=== PATIENT | male | born 1935 | race Caucasian/White ===

== ENCOUNTER 2023-12-21 15:00 | Outpatient (RCR) | payer MEDICARE, OTHER, SELFPAY ==
--- NOTE | 2023-11-27 16:02 | PT.OPEX ---
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 HE STATES, IT'S WORST WHEN I'M TRYING TO TAKE MY TSHIRT OFF. HE BRINGS IN AN XRAY REPORT THAT INDICATES GHJ ARTHRITIC CHANGES WITH SPURRING. HE IS HERE TO AVOID SURGERY, REDUCE HIS PAIN, AND IMPROVE FUNCTION . 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 Preferred Name SYD Precautions Therapy Limitations/Systems Review Hearing Objective Other/Pertinent Objective CERVICAL ROM: WFL SHOULDER AROM Flexion: R 152 W/PAINFUL ARC Abduction: R 142 Internal Rotation: R T10 External Rotation: R 72 SHOULDER MMT: Shoulder shrug: R 5/5 L 5/5 Shoulder flexion: R 3/5 L 5/5 Shoulder abduction: R 3/5 L 5/ 5 Shoulder External Rotation: R 3/5 L 5/5 Shoulder Internal Rotation: R 4+/5 L 5/5 SPECIAL TEST Shoulder impingement (+) HawkinsKennedy Test: (+) Neer Test: (+) Marina Test(subacromial) : (+) Painful arc 60-120 scaption: ( +) Rotator cuff tendonitis Speeds test(biceps): (+) Suzannas test(biceps-arm at side elbow flexed resist supination): (+) *Empty can/Jobes (Supra): (+) *full can: (+) Lift off test (subscap): (-) *horn blower (90-90 resistance t. 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 HANCOCK FOR RIGHT SHOULDER ARTHROPATHY TO EVAL AND TX; PMHX INCLUDES BUT NOT LIMITED TO HTN, GERD, H/O RIGHT MICAELA (2020?); HE DEMONSTRATES SIGNS AND SYMPTOMS CONSISTENT WITH SUPRASPINATUS AND INFRASPINATUS COMPROMISE WELL PROXIMAL BICEPS INVOLVEMENT. HIS GREATEST PAIN IS WITH CLOSING DOWN THE JOINT SPACE AND COMBINATION MVMTS CROSSING THE CHEST. HE REPORTS HIS GREATEST DEFICITS ARE REACHING AWAY FROM BODY, TAKING HIS TSHIRT OFF, AND CARRYING ITEMS. THIS IS HIS DOMINANT HAND AND FINDS THAT HIS LEFT SHOULDER IS DOING MUCH MORE WORK OVERALL. HE WOULD BENEFIT FROM SKILLED PHYSICAL THERAPY TO IMPROVE HIS SCAPULAR STRENGTH AND STABILIZATION, IMPROVE PAINFREE ROM, AND STRENGTH HIS RTC IT WILL ALLOW. HE IS PROVIDED A HEP TO BEGIN THIS ENDEAVOR AND UNDERSTANDS THAT IT IS YET TO BE DETERMINED HOW MUCH FUNCTION HE WILL GAIN BACK WELL SYMPTOM MGMT. Primary Functional Limitations REACHING LIFTING CARRYING ADL'S Plan of Care Rehabilitation Potential Fair Physical Therapy Goals SHOULDER IN 6-12 VISITS: 1. DECREASE SHOULDER PAIN TO < /2-3/10 WITH DAILY ACTIVITIES AND WITH THE PROGRESSION OF HER HEP OVER THE NEXT 4 WEEKS. 2. DEMONSTRATE PAIN FREE AROM OVER THE NEXT 4-6 WEEKS DURING DAILY ACTIVITIES WITHOUT FLARE UPS OF SYMPTOMS. 3. PATIENT WILL VERBALIZED UNDERSTANDING OF POSTURING AND BODY MECHANICS IT RELATES TO DECREASING STRESS, IMPROVED SHOULDER MECHANICS, AND DECREASED SYMPTOMS. 4.PATIENT WILL DEMONSTRATES IMPROVED STRENGTH TO FACILITATE RETURN TO DAILY ACTIVITIES WITH LESS SYMPTOMS AND DECREASED OPPORTUNITIES FOR FLARE UP OF PAIN 5. PATIENT WILL BE INDEPENDENT WITH HER HEP WITHIN THE NEXT 6-8 WEEKS FOR PROGRESSION TWD ABOVE MENTION GOALS, CONTINUED MGMT OF SYMPTOMS, AND ONGOING SELF IMPROVEMENTS IN POSTURING/STRENGTH/ STABILIZATION. Coordination/Communication With Referral Source Treatment Plan/Direct Interventions Electrical Stimulation,Heat, Ice/Cold/Vasopneumatic,Joint Mobilization,Manual Therapy, Neuromuscular Re-ed,Self-Care/ Home Management,Therapeutic Activities,Therapeutic Exercises,Ultrasound Frequency/Duration 1X/WK Patient Will Be Discharged From Therapy Completion of LTG(s), Independent w/HEP Evaluation Billing Untimed Code Treatment Minutes 20 PT Eval No Charge No Complexity Moderate Certification Information Initial Certification Date 11/27/23 Ending Certification Date 02/24/24 Provider Signature Required Yes Provider Signature Shows Agreement With POC & Medical Necessity Physician NPI Number Write NPI# Here Physician Comment/Change : Physician Signature & Date Requested Please Sign/Date Here
== END 2024-02-02 16:28 | disposition home or self-care (01) ==
PROVIDERS: PCP Family Medicine; Visit Provider Family Medicine
DX: M12.811 Other specific arthropathies, not elsewhere classified, right shoulder (principal); M25.511 Pain in right shoulder; M25.311 Other instability, right shoulder; Z51.89 Encounter for other specified aftercare
CPT/HCPCS: 97035; 97110; 97162

== ENCOUNTER 2024-01-25 13:22 | Inpatient (IN) | payer MEDICARE, OTHER, SELFPAY ==
[2024-01-25] VITALS (26 sets, daily range): BP systolic 100–157; BP diastolic 72–112; PULSE 64–104; RESP 20; TEMP 36.2–36.8; O2SAT 94–99; BMI 24.0
--- NOTE | 2024-01-25 13:54 | ED_ITS ---
HPI - Arrhythmia/Palpitations General Chief Complaint: Arrhythmia/Palpitations <Reg Hernandez Surjit - Last Filed: 01/25/24 15:57> Stated Complaint: Short of Breath <Reg Hernandez Surjit - Last Filed: 01/25/24 15:57> Time Seen by Provider: 01/25/24 13:33 <Reg Eddy - Last Filed: 01/25/24 15:57> Source: patient <Reg Eddy DO - Last Filed: 01/25/24 15:57> Mode of arrival: ambulatory <Reg Eddy - Last Filed: 01/25/24 15:57> Limitations: no limitations <Reg Hernandez Surjit - Last Filed: 01/25/24 15:57> History of Present Illness HPI narrative: Patient is a 88-year-old male presenting to the emergency department for shortness of breath. His states she has noticed some shortness of breath with him for the past month in he states it has been noticeably worse worse for the past week. He has never had symptoms like this before. No history of heart disease that he is aware of. Has never been told he has an irregular heart rhythm before. States symptoms resolved when he sits down. Only notice them when he is up and moving around. States now feels like he ran a mi after walking just a short distance. Denies fevers, chills, chest pain, weakness, numbness, headache, diarrhea, constipation. Has been having increased swelling to his right lower extremity for a little over a month now. States he is asymptomatic at this time. Has not felt any palpitations. <Reg Eddy - Last Filed: 01/25/24 15:57> Related Data Home Medications: Home Medications ?Medication ?Instructions ?Recorded ?Confirmed levothyroxine 25 mcg tablet mcg 01/25/24 lisinopril 20 tab 01/25/24 mg-hydrochlorothiazide 25 mg tablet omeprazole 20 mg capsule,delayed mg 01/25/24 release rosuvastatin 20 mg tablet mg 01/25/24 <Reg Eddy - Last Filed: 01/25/24 15:57> Allergies/Adverse Reactions: Allergies Allergy/AdvReac Type Severity Reaction Status Date / Time No Known Drug Allergies Allergy Verified 01/25/24 13:32 <Reg Eddy DO - Last Filed: 01/25/24 15:57> Review of Systems Status of ROS: Reports: 10 or more systems reviewed and unremarkable except as noted in History and below <Reg Eddy DO - Last Filed: 01/25/24 15:57> Exam Narrative: Exam Narrative: Const: Well-nourished, Well-developed, in no distress Eyes: PERRL, no conjunctival injection, and symmetrical lids HENT: Atraumatic external nose and ears. Moist mucous membranes. Neck: Symmetric, trachea midline, No thyromegaly. CVS: Regular rate but irregular rhythm, No murmurs or gallops. Peripheral pulses 2+ and equal in all extremities Extremities: +1 pitting edema right lower extremity RESP: Unlabored respiratory effort. Clear to auscultation bilaterally. GI: Nontender/Nondistended, No rebound or guarding. MSK:Extremities w/o deformity, Normal Active ROM, Skin: Warm, Dry. No rashes or lesions. Neuro: Normal Muscle tone, No focal neurological deficits. Psych: Awake, Alert, & Oriented x3. Appropriate mood and affect. <Reg Eddy DO - Last Filed: 01/25/24 15:57> Const: Vital Signs, click to edit/add: Vital Signs - 24 hr 01/25/24 13:29 01/25/24 13:45 01/25/24 13:46 Temperature 97.6 F Pulse Rate 86 85 Pulse Rate [Pulse Oximeter] 101 H Respiratory Rate 20 Blood Pressure 109/73 Blood Pressure [Ri ght Upper Arm] 114/79 Pulse Oximetry 95 99 98 Oxygen Delivery Me thod Room Air 01/25/24 14:00 01/25/24 14:01 01/25/24 14:31 Temperature Pulse Rate 89 91 Pulse Rate [Pulse Oximeter] Respiratory Rate Blood Pressure 111/84 111/72 Blood Pressure [Ri ght Upper Arm] Pulse Oximetry 97 99 Oxygen Delivery Me thod 01/25/24 14:33 01/25/24 14:47 01/25/24 15:01 Temperature Pulse Rate 95 85 92 Pulse Rate [Pulse Oximeter] Respiratory Rate Blood Pressure 115/98 H Blood Pressure [Ri ght Upper Arm] Pulse Oximetry 99 98 99 Oxygen Delivery Me thod <Reg Eddy DO - Last Filed: 01/25/24 15:57> Vital Signs, click to edit/add: Vital Signs - 24 hr 01/25/24 13:29 01/25/24 13:45 01/25/24 13:46 Temperature 97.6 F Pulse Rate 86 85 Pulse Rate [Pulse Oximeter] 101 H Respiratory Rate 20 Blood Pressure 109/73 Blood Pressure [Ri ght Upper Arm] 114/79 Pulse Oximetry 95 99 98 Oxygen Delivery Me thod Room Air 01/25/24 14:00 01/25/24 14:01 01/25/24 14:31 Temperature Pulse Rate 89 91 Pulse Rate [Pulse Oximeter] Respiratory Rate Blood Pressure 111/84 111/72 Blood Pressure [Ri ght Upper Arm] Pulse Oximetry 97 99 Oxygen Delivery Me thod 01/25/24 14:33 01/25/24 14:47 01/25/24 15:01 Temperature Pulse Rate 95 85 92 Pulse Rate [Pulse Oximeter] Respiratory Rate Blood Pressure 115/98 H Blood Pressure [Ri ght Upper Arm] Pulse Oximetry 99 98 99 Oxygen Delivery Me thod <Tamia De Leon MD - Last Filed: 01/25/24 16:58> Course Course ED Course: Presents to follow-up on the chest CTA of this patient. Chest CT PE protocol did not show any evidence of PE. <Tamia De Leon MD - Last Filed: 01/25/24 16:58> Vital Signs Vital signs: Initial Vital Signs Temperature 97.6 F 01/25/24 13:29 Temperature Source Temporal Artery Scan 01/25/24 13:29 Pulse Rate 101 H 01/25/24 13:29 Respiratory Rate 20 01/25/24 13:29 Blood Pressure 114/79 01/25/24 13:29 Blood Pressure Mean 90 01/25/24 13:29 Blood Pressure Position Sitting 01/25/24 13:29 Pulse Oximetry 95 01/25/24 13:29 Oxygen Delivery Method Room Air 01/25/24 13:29 Vital Signs Temperature 97.6 F 01/25/24 13:29 Pulse Rate 101 H 01/25/24 13:29 Respiratory Rate 20 01/25/24 13:29 Blood Pressure 114/79 01/25/24 13:29 Pulse Oximetry 95 01/25/24 13:29 Oxygen Delivery Method Room Air 01/25/24 13:29 Temperature 97.6 F 01/25/24 13:29 Pulse Rate 92 01/25/24 15:01 Respiratory Rate 20 01/25/24 13:29 Blood Pressure 115/98 H 01/25/24 15:01 Pulse Oximetry 99 01/25/24 15:01 Oxygen Delivery Method Room Air 01/25/24 13:29 <Reg Eddy DO - Last Filed: 01/25/24 15:57> Initial Vital Signs Temperature 97.6 F 01/25/24 13:29 Temperature Source Temporal Artery Scan 01/25/24 13:29 Pulse Rate 101 H 01/25/24 13:29 Respiratory Rate 20 01/25/24 13:29 Blood Pressure 114/79 01/25/24 13:29 Blood Pressure Mean 90 01/25/24 13:29 Blood Pressure Position Sitting 01/25/24 13:29 Pulse Oximetry 95 01/25/24 13:29 Oxygen Delivery Method Room Air 01/25/24 13:29 Vital Signs Temperature 97.6 F 01/25/24 13:29 Pulse Rate 101 H 01/25/24 13:29 Respiratory Rate 20 01/25/24 13:29 Blood Pressure 114/79 01/25/24 13:29 Pulse Oximetry 95 01/25/24 13:29 Oxygen Delivery Method Room Air 01/25/24 13:29 Temperature 97.6 F 01/25/24 13:29 Pulse Rate 92 01/25/24 15:01 Respiratory Rate 20 01/25/24 13:29 Blood Pressure 115/98 H 01/25/24 15:01 Pulse Oximetry 99 01/25/24 15:01 Oxygen Delivery Method Room Air 01/25/24 13:29 <Tamia De Leon MD - Last Filed: 01/25/24 16:58> Medications Administered Medications: Discontinued Medications Generic Name Dose Route Start Last Admin Trade Name Freq PRN Reason Stop Dose Admin Lactated Ringer's 1,000 mls @ 1,000 mls/hr 01/25/24 14:29 01/25/24 16:18 Lactated Ringers 1000 Ml IV 01/25/24 15:28 Infused .Q1H ONE Infusion <Reg Eddy DO - Last Filed: 01/25/24 15:57> Discontinued Medications Generic Name Dose Route Start Last Admin Trade Name Freq PRN Reason Stop Dose Admin Lactated Ringer's 1,000 mls @ 1,000 mls/hr 01/25/24 14:29 01/25/24 16:18 Lactated Ringers 1000 Ml IV 01/25/24 15:28 Infused .Q1H ONE Infusion <Tamia De Leon MD - Last Filed: 01/25/24 16:58> MDM - Arrhythmia/Palpitations MDM Narrative Medical decision making narrative: Patient is an 88-year-old male presenting to the emergency department for shortness of breath. He does appear to be in AFib at this time. He is not on blood thinners and sounds like symptoms have been going on for more than a couple days so cardioversion cannot be performed at this time. With the shortness of breath I will do a D-dimer look for signs PE. Was doing EKG and troponins look for signs of coronary artery disease. COVID/flu/RSV, magnesium, BMP, CBC also ordered. His heart rate is mostly in the 90s at this time and I do not believe is necessary to do a Cardizem bolus currently CBC shows no concerning abnormalities. BMP shows potassium 3.1 but no other concerning findings. His troponin was elevated at 0.25 repeat troponin was ordered. Magnesium within normal limits. COVID/flu/RSV is negative. His D- dimer is elevated 1.76 and I will order a CTA of the chest. This is pending. I spoke to [facility] both patient's symptoms and results. He thinks his elevated troponin is most likely from the new onset AFib an does not believe the patient needs to be transferred. Does recommend starting him on Eliquis. Will sign out this patient to my colleague to follow the CTA and repeat troponin. <Reg Eddy DO - Last Filed: 01/25/24 15:57> Lab Data Labs: Lab Results 01/25/24 01/25/24 01/25/24 Range/Units 13:44 13:45 14:15 WBC 6.48 (4.50-11.00) K/uL RBC 4.46 (4.30-5.90) m/uL Hgb 14.6 (13.5-17.5) gm/dL Hct 44.8 (37.0-53.0) % MCV 100 (80-100) fL MCH 33 (26-34) pg MCHC 33 (32-36) gm/dL RDW Coeff of Lisa 13.6 (11.5-15.5) % Plt Count 156 (140-440) K/uL Neut % (Auto) 72.6 H (42.0-72.0) % Lymph % (Auto) 10.8 L (20-44) % [place] % (Auto) 13.6 H (0.0-11.0) % Eos % (Auto) 1.9 (0.0-7.0) % Baso % (Auto) 0.9 (0.0-3.0) % Neut # (Auto) 4.70 (1.7-7.0) K/uL Lymph # (Auto) 0.70 L (0.90-2.90) K/uL [place] # (Auto) 0.90 (0.00-0.90) K/UL Eos # (Auto) 0.12 (0.00-0.50) K/uL Baso # (Auto) 0.06 (0.00-0.30) K/uL Abs Immat Gran (auto) 0.01 (0.00-0.30) K/uL Imm/Tot Granulo (auto) 0.2 % D-Dimer Quant (PE/DVT) 1.76 H (0.00-0.50) ug/ml Sodium 138 (135-149) mmol/L Potassium 3.1 L (3.6-5.1) mmol/L Chloride 102 (96-114) mmol/L Carbon Dioxide 27 (20-32) mmol/L Anion Gap 9 (7-15) mEq/L BUN 37 H (7-30) mg/dL Creatinine 1.4 (0.5-1.5) mg/dL Estimated GFR 48 ml/min Glucose 135 H (60-115) mg/dL Calcium 9.7 (8.4-10.6) mg/dL Magnesium 1.5 (1.5-2.6) mg/dL Troponin I 0.25 H* (0.01-0.04) ng/mL SARS-CoV-2 (PCR) (Negative) Influenza Type A (PCR) (Negative) Influenza Type B (PCR) (Negative) RSV (PCR) (Negative) Lab Acknowledgement Test Added POC Troponin I 0.17 H (0.01-0.04) ng/ml 01/25/24 Range/Units 14:33 WBC (4.50-11.00) K/uL RBC (4.30-5.90) m/uL Hgb (13.5-17.5) gm/dL Hct (37.0-53.0) % MCV (80-100) fL MCH (26-34) pg MCHC (32-36) gm/dL RDW Coeff of Lisa (11.5-15.5) % Plt Count (140-440) K/uL Neut % (Auto) (42.0-72.0) % Lymph % (Auto) (20-44) % [place] % (Auto) (0.0-11.0) % Eos % (Auto) (0.0-7.0) % Baso % (Auto) (0.0-3.0) % Neut # (Auto) (1.7-7.0) K/uL Lymph # (Auto) (0.90-2.90) K/uL [place] # (Auto) (0.00-0.90) K/UL Eos # (Auto) (0.00-0.50) K/uL Baso # (Auto) (0.00-0.30) K/uL Abs Immat Gran (auto) (0.00-0.30) K/uL Imm/Tot Granulo (auto) % D-Dimer Quant (PE/DVT) (0.00-0.50) ug/ml Sodium (135-149) mmol/L Potassium (3.6-5.1) mmol/L Chloride (96-114) mmol/L Carbon Dioxide (20-32) mmol/L Anion Gap (7-15) mEq/L BUN (7-30) mg/dL Creatinine (0.5-1.5) mg/dL Estimated GFR ml/min Glucose (60-115) mg/dL Calcium (8.4-10.6) mg/dL Magnesium (1.5-2.6) mg/dL Troponin I (0.01-0.04) ng/mL SARS-CoV-2 (PCR) Negative SARS-CoV-2 (Negative) Influenza Type A (PCR) Negative PCR FLU A (Negative) Influenza Type B (PCR) Negative PCR FLU B (Negative) RSV (PCR) Negative PCR RSV (Negative) Lab Acknowledgement POC Troponin I (0.01-0.04) ng/ml <Reg Eddy, DO - Last Filed: 01/25/24 15:57> Lab Results 01/25/24 01/25/24 01/25/24 Range/Units 13:44 13:45 14:15 WBC 6.48 (4.50-11.00) K/uL RBC 4.46 (4.30-5.90) m/uL Hgb 14.6 (13.5-17.5) gm/dL Hct 44.8 (37.0-53.0) % MCV 100 (80-100) fL MCH 33 (26-34) pg MCHC 33 (32-36) gm/dL RDW Coeff of Lisa 13.6 (11.5-15.5) % Plt Count 156 (140-440) K/uL Neut % (Auto) 72.6 H (42.0-72.0) % Lymph % (Auto) 10.8 L (20-44) % [place] % (Auto) 13.6 H (0.0-11.0) % Eos % (Auto) 1.9 (0.0-7.0) % Baso % (Auto) 0.9 (0.0-3.0) % Neut # (Auto) 4.70 (1.7-7.0) K/uL Lymph # (Auto) 0.70 L (0.90-2.90) K/uL [place] # (Auto) 0.90 (0.00-0.90) K/UL Eos # (Auto) 0.12 (0.00-0.50) K/uL Baso # (Auto) 0.06 (0.00-0.30) K/uL Abs Immat Gran (auto) 0.01 (0.00-0.30) K/uL Imm/Tot Granulo (auto) 0.2 % D-Dimer Quant (PE/DVT) 1.76 H (0.00-0.50) ug/ml Sodium 138 (135-149) mmol/L Potassium 3.1 L (3.6-5.1) mmol/L Chloride 102 (96-114) mmol/L Carbon Dioxide 27 (20-32) mmol/L Anion Gap 9 (7-15) mEq/L BUN 37 H (7-30) mg/dL Creatinine 1.4 (0.5-1.5) mg/dL Estimated GFR 48 ml/min Glucose 135 H (60-115) mg/dL Calcium 9.7 (8.4-10.6) mg/dL Magnesium 1.5 (1.5-2.6) mg/dL Troponin I 0.25 H* (0.01-0.04) ng/mL SARS-CoV-2 (PCR) (Negative) Influenza Type A (PCR) (Negative) Influenza Type B (PCR) (Negative) RSV (PCR) (Negative) Lab Acknowledgement Test Added POC Troponin I 0.17 H (0.01-0.04) ng/ml 01/25/24 Range/Units 14:33 WBC (4.50-11.00) K/uL RBC (4.30-5.90) m/uL Hgb (13.5-17.5) gm/dL Hct (37.0-53.0) % MCV (80-100) fL MCH (26-34) pg MCHC (32-36) gm/dL RDW Coeff of Lisa (11.5-15.5) % Plt Count (140-440) K/uL Neut % (Auto) (42.0-72.0) % Lymph % (Auto) (20-44) % [place] % (Auto) (0.0-11.0) % Eos % (Auto) (0.0-7.0) % Baso % (Auto) (0.0-3.0) % Neut # (Auto) (1.7-7.0) K/uL Lymph # (Auto) (0.90-2.90) K/uL [place] # (Auto) (0.00-0.90) K/UL Eos # (Auto) (0.00-0.50) K/uL Baso # (Auto) (0.00-0.30) K/uL Abs Immat Gran (auto) (0.00-0.30) K/uL Imm/Tot Granulo (auto) % D-Dimer Quant (PE/DVT) (0.00-0.50) ug/ml Sodium (135-149) mmol/L Potassium (3.6-5.1) mmol/L Chloride (96-114) mmol/L Carbon Dioxide (20-32) mmol/L Anion Gap (7-15) mEq/L BUN (7-30) mg/dL Creatinine (0.5-1.5) mg/dL Estimated GFR ml/min Glucose (60-115) mg/dL Calcium (8.4-10.6) mg/dL Magnesium (1.5-2.6) mg/dL Troponin I (0.01-0.04) ng/mL SARS-CoV-2 (PCR) Negative SARS-CoV-2 (Negative) Influenza Type A (PCR) Negative PCR FLU A (Negative) Influenza Type B (PCR) Negative PCR FLU B (Negative) RSV (PCR) Negative PCR RSV (Negative) Lab Acknowledgement POC Troponin I (0.01-0.04) ng/ml <Tamia De Leon MD - Last Filed: 01/25/24 16:58> ECG Data Attestation: I personally reviewed and interpreted this ECG as follows: <Reg Eddy DO - Last Filed: 01/25/24 15:57> Prior ECG tracings: not available for review <Reg Eddy DO - Last Filed: 01/25/24 15:57> Interpretation: Atrial fibrillation with RVR and a rate of 104 beats per minute, no ST or T-wave abnormalities. Normal QRS, normal QTC. <Reg Eddy DO - Last Filed: 01/25/24 15:57> Discharge Plan Discharge Clinical Impression: Non-ST elevation MN (NSTEMI) Atrial fibrillation Qualifiers: Atrial fibrillation type: unspecified Qualified Code(s): I48.91 - Unspecified atrial fibrillation <Reg Eddy DO - Last Filed: 01/25/24 15:57> Patient Disposition: Admitted As Observation <Reg Eddy DO - Last Filed: 01/25/24 15:57> Condition: Stable <Reg Eddy DO - Last Filed: 01/25/24 15:57>
[2024-01-25 13:56] LABS: Basophils Absolute Auto 0.06 K/uL (0.00-0.30); Basophils Percent Auto 0.9 % (0.0-3.0); Eosinophils Absolute Auto 0.12 K/uL (0.00-0.50); Eosinophils Percent Auto 1.9 % (0.0-7.0); Hematocrit 44.8 % (37.0-53.0); Hemoglobin* 14.6 gm/dL (13.5-17.5); Immature Granulocytes Abs Auto 0.01 K/uL (0.00-0.30); Immature Granulocytes Pct Auto 0.2 %; Lymphocytes Percent Auto 10.8 % (20-44); Mean Corpuscular HGB Conc 33 gm/dL (32-36); Mean Corpuscular Hemoglobin 33 pg (26-34); Mean Corpuscular Volume 100 fL (80-100); Monocytes Percent Auto 13.6 % (0.0-11.0); Neutrophils Percent Auto 72.6 % (42.0-72.0); Platelet Count* 156 K/uL (140-440); RDW Coefficient of Variation % 13.6 % (11.5-15.5); Red Blood Count 4.46 m/uL (4.30-5.90); White Blood Count* 6.48 K/uL (4.50-11.00)
[2024-01-25 13:58] LABS: Slide Review Reflex No
[2024-01-25 14:08] LABS: Troponin, Point-of-Care* 0.17 ng/ml (0.01-0.04)
[2024-01-25 14:10] LABS: Chloride* 102 mmol/L (96-114); Potassium* 3.1 mmol/L (3.6-5.1); Sodium* 138 mmol/L (135-149)
[2024-01-25 14:13] LABS: Anion Gap 9 mEq/L (7-15); Blood Urea Nitrogen* 37 mg/dL (7-30); Carbon Dioxide* 27 mmol/L (20-32); Creatinine* 1.4 mg/dL (0.5-1.5); Estimated Glomerular Filt Rate 48 ml/min
[2024-01-25 14:14] LABS: Calcium* 9.7 mg/dL (8.4-10.6); Glucose* 135 mg/dL (60-115); Magnesium* 1.5 mg/dL (1.5-2.6)
[2024-01-25 14:20] LABS: D Dimer Quantitative* 1.76 ug/ml (0.00-0.50)
--- NOTE | 2024-01-25 14:29 | CRLHL7_ITS ---
For Patients: As a result of the Century Cures Act, medical imaging exams and procedure reports are released immediately into your electronic medical record. You may view this report before your referring provider. If you have questions, please contact your health care provider. INDICATION: Short of breath. TECHNIQUE: CT chest pulmonary angiogram acquired with 95 cc of Isovue 370 IV contrast. COMPARISON: None. FINDINGS: Cardiovascular structures: CT pulmonary angiogram demonstrates adequate opacification of the pulmonary arteries. No evidence of pulmonary embolus. Aortic atherosclerosis. The non opacified thoracic aorta is normal in caliber. Coronary artery calcifications. Heart size is within normal limits. Mediastinum and maury: No pathologic lymphadenopathy. Lungs: No pneumothorax. Near diffuse mild bilateral bronchial wall thickening. Subtle mild bilateral ground-glass opacities. Linear scarring or atelectasis at the lung bases. Pleura and pericardium: No effusions. Chest wall and axilla: Unremarkable. Bones: Degenerative changes. No acute or suspicious osseous abnormality. Upper abdomen: Left hepatic lobe low densities most consistent with incidental cysts. Visualized upper abdomen is otherwise unremarkable. IMPRESSION: 1. No evidence of pulmonary embolus. 2. Mild bilateral bronchial wall thickening is likely infectious or inflammatory. 3. Subtle bilateral ground-glass opacities may represent subsegmental atelectasis or infection/inflammation. Dictated by Antonio Irizarry MD @ 01/25/2024 4:37:30 PM Please note that all CT scans at this facility use dose modulation, iterative reconstruction, and/or weight-based dosing when appropriate to reduce radiation dose to as low as reasonably achievable. Dictated by: Antonio Irizarry MD @ 01/25/2024 16:37:50 (Electronically Signed)
[2024-01-25] MEDS: LACTATED RINGERS 1000 ML 1,000 ML IV (14:44)
[2024-01-25 14:57] LABS: Troponin I* 0.25 ng/mL (0.01-0.04)
[2024-01-25 15:24] LABS: PCR FLU A Negative PCR FLU A (Negative); PCR FLU B Negative PCR FLU B (Negative); PCR RSV Negative PCR RSV (Negative); SARS PCR* Negative SARS-CoV-2 (Negative)
--- NOTE | 2024-01-25 17:07 | P.IMHP_ITS ---
Hospitalist- H&P: HPI History of Present Illness Date Seen: 01/25/24 Chief complaint: Short of Breath Narrative: Dany Li is a 88 year old male with hypertension, hyperlipidemia, history of prostate cancer admitted through the emergency department with 1 week history of exertional dyspnea. Patient reports that he has been having increasing dyspnea over the last year but it acutely got worse in the past week. He is now unable to do any significant walking without getting quite dyspneic. Symptoms resolve when he is resting. He is having no chest pain with this. He has not had recent illness with cough, cold, fever. He is unaware of palpitations. No syncope. He has no previous history of heart disease. No history of atrial fibrillation. In the emergency department he is found to have atrial fibrillation with mild tachycardia. He is also found to have stable elevated troponin at 0.25 No previous history of VTE or DVT. He does have some chronic left leg swelling. Review of Systems Narrative: Patient reports doing well except for symptoms as above [facility] Medical History (Updated 01/25/24 @ 18:28 by Carmine Campoverde MD) Hypokalemia ?E87.6 - Hypokalemia (ICD-10) CVA (cerebral vascular accident) ?I63.9 - Cerebral infarction, unspecified (ICD-10) Hyperlipidemia ?E78.5 - Hyperlipidemia, unspecified (ICD-10) Insomnia ?G47.00 - Insomnia, unspecified (ICD-10) Stage 3 chronic kidney disease ?N18.30 - Chronic kidney disease, stage 3 unspecified (ICD-10) Hypothyroidism ?E03.9 - Hypothyroidism, unspecified (ICD-10) Gastroesophageal reflux ?K21.9 - Gastro-esophageal reflux disease without esophagitis (ICD-10) Prostate cancer ?C61 - Malignant neoplasm of prostate (ICD-10) Hypertension ?I10 - Essential (primary) hypertension (ICD-10) Surgical History History of total right hip arthroplasty ?Z96.641 - Presence of right artificial hip joint (ICD-10) H/O partial thyroidectomy ?E89.0 - Postprocedural hypothyroidism (ICD-10) History of orchiectomy ?Z90.79 - Acquired absence of other genital organ(s) (ICD-10) History of prostatectomy ?Z90.79 - Acquired absence of other genital organ(s) (ICD-10) History of appendectomy ?Z90.49 - Acquired absence of other specified parts of digestive tract (ICD- 10) Family History (Updated 01/25/24 @ 18:21 by Carmine Campoverde MD) Other Heart disease Social History (Updated 01/25/24 @ 18:23 by Carmine Campoverde MD) Narrative: He lives with his at [facility] on the [place]. His is [facility] power of trademark attorney. His code status is DNR. He is continue to drive. He walks without assistive device/cane/walker. He does not smoke. He drinks 1 martini per day How often do you have a drink containing alcohol: 4 or more times a week AUDIT-C Alcohol total score: 4 Non-prescribed substance use: denies use Meds Home Medications and Allergies Home Medications ?Medication ?Instructions ?Recorded ?Confirmed ?Type fluticasone propionate 50 2 spray intranasal DAILY 01/25/24 01/25/24 History mcg/actuation nasal spray,suspension levothyroxine 25 mcg tablet 25 mcg PO DAILY 01/25/24 01/25/24 History lisinopril 20 1 tab PO DAILY 01/25/24 01/25/24 History mg-hydrochlorothiazide 25 mg tablet lorazepam 0.5 mg tablet 0.5 mg PO BID PRN 01/25/24 01/25/24 History omeprazole 20 mg capsule,delayed 20 mg PO DAILY 01/25/24 01/25/24 History release rosuvastatin 20 mg tablet 20 mg PO QPM 01/25/24 01/25/24 History Home Medication Comments: Sink 50 mg twice a week Allergies Allergy/AdvReac Type Severity Reaction Status Date / Time No Known Drug Allergies Allergy Verified 01/25/24 13:32 Exam Narrative: Exam Narrative: He is alert and appears in no distress. Breathing is unlabored on room air. Eyes normal. Oropharynx is normal. Neck is supple without mass or adenopathy. No jugular venous distension. Respirations are clear to auscultation. No wheezing rales rhonchi. Cardiovascular: S1, S2, irregularly irregular tachycardia. Abdomen: Bowel sounds active. Abdomen is soft without tenderness or mass. Extremities with trace edema on the right ankle and 1+ edema on the left ankle. Is intact pedal pulses. Mild skin changes from chronic sun damage Const: Vital Signs, click to edit/add: Vital Signs - 24 hr 01/25/24 13:29 01/25/24 13:45 01/25/24 13:46 Temperature 97.6 F Pulse Rate 86 85 Pulse Rate [Pulse Oximeter] 101 H Respiratory Rate 20 Blood Pressure 109/73 Blood Pressure [Ri ght Upper Arm] 114/79 Pulse Oximetry 95 99 98 Oxygen Delivery Me thod Room Air 01/25/24 14:00 01/25/24 14:01 01/25/24 14:31 Temperature Pulse Rate 89 91 Pulse Rate [Pulse Oximeter] Respiratory Rate Blood Pressure 111/84 111/72 Blood Pressure [Ri ght Upper Arm] Pulse Oximetry 97 99 Oxygen Delivery Me thod 01/25/24 14:33 01/25/24 14:47 01/25/24 15:01 Temperature Pulse Rate 95 85 92 Pulse Rate [Pulse Oximeter] Respiratory Rate Blood Pressure 115/98 H Blood Pressure [Ri ght Upper Arm] Pulse Oximetry 99 98 99 Oxygen Delivery Me thod Documenting provider has reviewed patient's vital signs: yes Hospitalist - H&P: Result Labs Labs: Short CBC 01/25/24 Range/Units 13:45 WBC 6.48 (4.50-11.00) K/uL Hgb 14.6 (13.5-17.5) gm/dL Hct 44.8 (37.0-53.0) % Plt Count 156 (140-440) K/uL BMP 01/25/24 13:45 Sodium 138 Potassium 3.1 L Chloride 102 Carbon Dioxide 27 BUN 37 H Creatinine 1.4 Glucose 135 H Calcium 9.7 Cardiac Enzymes 01/25/24 Range/Units 13:45 Troponin I 0.25 H* (0.01-0.04) ng/mL ECG Attestation: I personally reviewed and interpreted this ECG as follows: (afib with rate of 104, occ PVC, infero-lateral ST depression) ECG interpretation date: 01/25/24 ECG interpretation time: 17:[address] scan - chest: Radiologist's impression: INDICATION: Short of breath. TECHNIQUE: CT chest pulmonary angiogram acquired with 95 cc of Isovue 370 IV contrast. COMPARISON: None. FINDINGS: Cardiovascular structures: CT pulmonary angiogram demonstrates adequate opacification of the pulmonary arteries. No evidence of pulmonary embolus. Aortic atherosclerosis. The non opacified thoracic aorta is normal in caliber. Coronary artery calcifications. Heart size is within normal limits. Mediastinum and maury: No pathologic lymphadenopathy. Lungs: No pneumothorax. Near diffuse mild bilateral bronchial wall thickening. Subtle mild bilateral ground-glass opacities. Linear scarring or atelectasis at the lung bases. Pleura and pericardium: No effusions. Chest wall and axilla: Unremarkable. Bones: Degenerative changes. No acute or suspicious osseous abnormality. Upper abdomen: Left hepatic lobe low densities most consistent with incidental cysts. Visualized upper abdomen is otherwise unremarkable. IMPRESSION: 1. No evidence of pulmonary embolus. 2. Mild bilateral bronchial wall thickening is likely infectious or inflammatory. 3. Subtle bilateral ground-glass opacities may represent subsegmental atelectasis or infection/inflammation. Assessment and Plan Assessment and plan (1) Non-ST elevation ME (NSTEMI): Problem comment: Cardia respiratory monitoring, medical management, serial troponins, echocardiogram Status: Acute (2) Atrial fibrillation: Problem comment: Rate control, anticoagulation, echocardiogram Status: Acute (3) Exertional dyspnea: Problem comment: Dyspnea could represent angina or be secondary to AFib with RVR. Continue to monitor with rate control. Status: Acute (4) Hypokalemia: Problem comment: Likely related to hydrochlorothiazide. Acutely replace and chronically supplement Status: Acute Plan Patient admitted for management of atrial fibrillation in RVR, exertional dyspnea and elevated troponin. Initially will manage medically with rate control, anticoagulation. Obtain echocardiogram. Correct electrolytes, optimize medical management of heart disease. Total Time Spent Total Time Spent: Total time spent today is 80 minutes in coordination of care and discussing with patient and family ongoing management of heart disease
[2024-01-25 17:18] LABS: NT Pro B Type NatriureticPept* 5810 pg/mL
[2024-01-25] MEDS: MAGNESIUM IV 2 GM/50 ML PIGGYBACK IVPB (17:19)
[2024-01-25] MEDS: POTASSIUM CHLORIDE 10 MEQ CAPSULE ER 40 MEQ PO (17:27)
[2024-01-25 17:39] LABS: Troponin I* 0.24 ng/mL (0.01-0.04)
[2024-01-25] MEDS: METOPROLOL TARTRATE 1 MG/ML inj 5 MG IVP (18:50)
[2024-01-25] MEDS: POTASSIUM BICARB 25 MEQ EFFERVESCENT TAB PO (18:50)
--- NOTE | 2024-01-25 19:28 | PC.NURSE ---
Pt arrived to floor from ED at 1835. Pt alert and oriented. Pt had no complaints of pain. Pt up with SBA-Assist of one.Pt's at bedside.
--- NOTE | 2024-01-25 19:31 | PC.NURSE ---
Pt lives with at [facility] on [address].
[2024-01-25] MEDS: APIXABAN 5 MG TABLET PO (21:05)
[2024-01-25] MEDS: SODIUM CHLORIDE 0.9 % (FLUSH) 10 ML SYRINGE 5 ML IVF (21:05)
[2024-01-25] MEDS: METOPROLOL TARTRATE 25 MG TABLET PO (21:05)
[2024-01-26 03:00] VITALS: BP 129/98; PULSE 91; RESP 20; TEMP 36.6; O2SAT 97
--- NOTE | 2024-01-26 06:19 | PC.NURSE ---
Shift note: Pt is doing well. O2>90 on RA. Alert and oriented. SBA to independent ambulating. No pain and SOB recorded. Vitally stable, pt had adequate sleep.
[2024-01-26 06:32] LABS: Basophils Absolute Auto 0.05 K/uL (0.00-0.30); Eosinophils Absolute Auto 0.21 K/uL (0.00-0.50); Hematocrit 38.8 % (37.0-53.0); Hemoglobin* 12.8 gm/dL (13.5-17.5); Immature Granulocytes Abs Auto 0.01 K/uL (0.00-0.30); Immature Granulocytes Pct Auto 0.2 %; Lymphocytes Percent Auto 15.2 % (20-44); Mean Corpuscular HGB Conc 33 gm/dL (32-36); Mean Corpuscular Hemoglobin 33 pg (26-34); Mean Corpuscular Volume 101 fL (80-100); Monocytes Percent Auto 12.5 % (0.0-11.0); Neutrophils Percent Auto 67.1 % (42.0-72.0); Platelet Count* 144 K/uL (140-440); RDW Coefficient of Variation % 13.7 % (11.5-15.5); Red Blood Count 3.85 m/uL (4.30-5.90); White Blood Count* 5.21 K/uL (4.50-11.00)
[2024-01-26] MEDS: LEVOTHYROXINE 25 MCG TABLET PO (06:32)
[2024-01-26 06:34] LABS: Slide Review Reflex No
[2024-01-26 06:44] LABS: Chloride* 104 mmol/L (96-114); Potassium* 3.6 mmol/L (3.6-5.1); Sodium* 138 mmol/L (135-149)
[2024-01-26 06:47] LABS: Anion Gap 5 mEq/L (7-15); Blood Urea Nitrogen* 29 mg/dL (7-30); Carbon Dioxide* 29 mmol/L (20-32); Creatinine* 1.2 mg/dL (0.5-1.5); Est. Creatinine Clearance* 43.94; Estimated Glomerular Filt Rate 58 ml/min
[2024-01-26 06:48] LABS: Calcium* 9.6 mg/dL (8.4-10.6); Glucose* 107 mg/dL (60-115); Magnesium* 1.8 mg/dL (1.5-2.6)
[2024-01-26 07:00] VITALS: BP 113/89; PULSE 107; PULSE 92; RESP 20; TEMP 36.7; O2SAT 96
[2024-01-26 07:15] LABS: Troponin I* 0.23 ng/mL (0.01-0.04)
[2024-01-26] MEDS: lisinopriL 20 MG TABLET PO (08:17)
[2024-01-26] MEDS: POTASSIUM CHLORIDE 10 MEQ CAPSULE ER PO (08:17)
[2024-01-26] MEDS: OMEPRAZOLE 20 MG CAPSULE DR PO (08:17)
[2024-01-26] MEDS: hydroCHLOROthiazide 25 MG TABLET PO (08:17)
[2024-01-26] MEDS: APIXABAN 5 MG TABLET PO (08:17)
[2024-01-26] MEDS: SODIUM CHLORIDE 0.9 % (FLUSH) 10 ML SYRINGE 5 ML IVF (08:18)
[2024-01-26] MEDS: METOPROLOL TARTRATE 25 MG TABLET PO (08:18)
--- NOTE | 2024-01-26 08:45 | CRLHL7_ITS ---
For Patients: As a result of the Century Cures Act, medical imaging exams and procedure reports are released immediately into your electronic medical record. You may view this report before your referring provider. If you have questions, please contact your health care provider. INDICATION: Edema. Pain and swelling. Elevated D-dimer COMPARISON: None available. FINDINGS: Ultrasound of the venous drainage of the left lower extremity shows no evidence of deep venous thrombosis. The examination was performed as mar scale, mar scale compression, color Doppler and spectral Doppler interrogation. Augmentation technique was also performed as per protocol. There is normal antegrade flow from the posterior tibial and popliteal veins superiorly through the common femoral vein. There is normal augmentation and compressibility of these veins. The right common femoral vein is widely patent. IMPRESSION: No evidence of deep venous thrombosis on ultrasound examination of the left lower extremity. Dictated by Nick Pierson MD @ 01/26/2024 8:59:24 AM (Electronically Signed)
--- NOTE | 2024-01-26 10:48 | PM.IMHP1 ---
Hospitalist- H&P: HPI History of Present Illness Date Seen: 01/26/24 Chief complaint: Short of Breath Narrative: Dany Li is a 88 year old male [facility] Medical History (Updated 01/25/24 @ 18:28 by Carmine Campoverde MD) Hypokalemia ?E87.6 - Hypokalemia (ICD-10) CVA (cerebral vascular accident) ?I63.9 - Cerebral infarction, unspecified (ICD-10) Hyperlipidemia ?E78.5 - Hyperlipidemia, unspecified (ICD-10) Insomnia ?G47.00 - Insomnia, unspecified (ICD-10) Stage 3 chronic kidney disease ?N18.30 - Chronic kidney disease, stage 3 unspecified (ICD-10) Hypothyroidism ?E03.9 - Hypothyroidism, unspecified (ICD-10) Gastroesophageal reflux ?K21.9 - Gastro-esophageal reflux disease without esophagitis (ICD-10) Prostate cancer ?C61 - Malignant neoplasm of prostate (ICD-10) Hypertension ?I10 - Essential (primary) hypertension (ICD-10) Surgical History History of total right hip arthroplasty ?Z96.641 - Presence of right artificial hip joint (ICD-10) H/O partial thyroidectomy ?E89.0 - Postprocedural hypothyroidism (ICD-10) History of orchiectomy ?Z90.79 - Acquired absence of other genital organ(s) (ICD-10) History of prostatectomy ?Z90.79 - Acquired absence of other genital organ(s) (ICD-10) History of appendectomy ?Z90.49 - Acquired absence of other specified parts of digestive tract (ICD-10) Family History (Updated 01/25/24 @ 18:21 by Carmine Campoverde MD) Other Heart disease Social History (Updated 01/25/24 @ 18:23 by Carmine Campoverde MD) Narrative: He lives with his at [facility] on the [place]. 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 His code status is DNR. He is continue to drive. He walks without assistive device/cane/walker. He does not smoke. He drinks 1 martini per day What is your current living situation?: I presently have a place to live Problems where you live: no known problems Problems where you live details: NA In the past 12 months, utilities in danger of being shut off: no In past 12 months, lack of transportation kept you from medical appts, meetings, work, or getting things needed for daily living: no In the past 12 mos, have been you worried that your food would run out before you had money to buy more?: never true In the past 12 mos, the food you bought just didn't last and you didn't have money to buy more?: never true Highest level of school completed/degree received: 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, 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, 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, 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) Smoking Status: Never smoker Second hand tobacco smoke exposure: No How often do you have a drink containing alcohol: 4 or more times a week Alcohol type: hard liquor Alcohol type details: one martini/night How many standard drinks containing alcohol do you have on a typical day: 1 or 2 AUDIT-C Alcohol total score: 4 Non-prescribed substance use: denies use Caffeine: Yes (coffee) How often does anyone, including family, friends and others, physically hurt you: never How often does anyone, including family, friends and others, insult or talk down to you: never How often does anyone, including family, friends and others, threaten you with harm: never How often does anyone, including family, friends and others, scream or curse at you: never service: Yes Meds Home Medications and Allergies Home Medications ?Medication ?Instructions ?Recorded ?Confirmed ?Type aspirin 81 mg tablet,delayed 81 mg PO DAILY 01/25/24 01/25/24 History release (Adult Low Dose Aspirin) fluticasone propionate 50 2 spray intranasal DAILY 01/25/24 01/25/24 History mcg/actuation nasal spray,suspension levothyroxine 25 mcg tablet 25 mcg PO DAILY 01/25/24 01/25/24 History lisinopril 20 1 tab PO DAILY 01/25/24 01/25/24 History mg-hydrochlorothiazide 25 mg tablet lorazepam 0.5 mg tablet 0.5 mg PO BID PRN 01/25/24 01/25/24 History omeprazole 20 mg capsule,delayed 20 mg PO DAILY 01/25/24 01/25/24 History release rosuvastatin 20 mg tablet 20 mg PO QPM 01/25/24 01/25/24 History Allergies Allergy/AdvReac Type Severity Reaction Status Date / Time No Known Drug Allergies Allergy Verified 01/25/24 13:32 Exam Const: Vital Signs, click to edit/add: Vital Signs - 24 hr 01/25/24 13:29 01/25/24 13:45 01/25/24 13:46 Temperature 97.6 F Pulse Rate 86 85 Pulse Rate [Pulse Oximeter] 101 H Respiratory Rate 20 Blood Pressure 109/73 Blood Pressure [Ri ght Arm] Blood Pressure [Ri ght Upper Arm] 114/79 Pulse Oximetry 95 99 98 Oxygen Delivery Me thod Room Air 01/25/24 14:00 01/25/24 14:01 01/25/24 14:31 Temperature Pulse Rate 89 91 Pulse Rate [Pulse Oximeter] Respiratory Rate Blood Pressure 111/84 111/72 Blood Pressure [Ri ght Arm] Blood Pressure [Ri ght Upper Arm] Pulse Oximetry 97 99 Oxygen Delivery Me thod 01/25/24 14:33 01/25/24 14:47 01/25/24 15:01 Temperature Pulse Rate 95 85 92 Pulse Rate [Pulse Oximeter] Respiratory Rate Blood Pressure 115/98 H Blood Pressure [Ri ght Arm] Blood Pressure [Ri ght Upper Arm] Pulse Oximetry 99 98 99 Oxygen Delivery Me thod 01/25/24 15:45 01/25/24 16:00 01/25/24 16:01 Temperature Pulse Rate 91 93 93 Pulse Rate [Pulse Oximeter] Respiratory Rate Blood Pressure 129/90 H Blood Pressure [Ri ght Arm] Blood Pressure [Ri ght Upper Arm] Pulse Oximetry 99 99 99 Oxygen Delivery Me thod 01/25/24 16:15 01/25/24 16:21 01/25/24 16:30 Temperature Pulse Rate 75 104 H 88 Pulse Rate [Pulse Oximeter] Respiratory Rate Blood Pressure 131/94 H Blood Pressure [Ri ght Arm] Blood Pressure [Ri ght Upper Arm] Pulse Oximetry 99 98 98 Oxygen Delivery Me thod 01/25/24 16:31 01/25/24 16:45 01/25/24 17:00 Temperature Pulse Rate 81 87 84 Pulse Rate [Pulse Oximeter] Respiratory Rate Blood Pressure 131/89 Blood Pressure [Ri ght Arm] Blood Pressure [Ri ght Upper Arm] Pulse Oximetry 99 99 98 Oxygen Delivery Me thod 01/25/24 17:02 01/25/24 17:15 01/25/24 17:30 Temperature Pulse Rate 80 90 90 Pulse Rate [Pulse Oximeter] Respiratory Rate Blood Pressure 133/82 Blood Pressure [Ri ght Arm] Blood Pressure [Ri ght Upper Arm] Pulse Oximetry 99 94 95 Oxygen Delivery Me od 01/25/24 17:31 01/25/24 18:02 01/25/24 19:00 Temperature 97.2 F L Pulse Rate Pulse Rate [Pulse Oximeter] 64 Respiratory Rate 20 Blood Pressure 149/112 H 157/94 H Blood Pressure [Ri ght Arm] 100/82 Blood Pressure [Ri ght Upper Arm] Pulse [facility]ximetry [facility] 01[facility]25/24 19:06 01/25/24 23:00 01/25/24 23:00 Temperature 97.8 F Pulse Rate Pulse Rate [Pulse Oximeter] 96 83 Respiratory Rate 20 20 20 Blood Pressure Blood Pressure [Ri ght Arm] 146/87 H Blood Pressure [Ri ght Upper Arm] Pulse Oximetry 99 99 Oxygen Delivery [facility] Room Air Room Air 01/25/24 23:00 01/25/24 23:00 01/26/24 03:00 Temperature 98.2 F 97.9 F Pulse Rate 100 Pulse Rate [Pulse Oximeter] 83 91 Respiratory Rate 20 20 Blood Pressure Blood Pressure [Ri ght Arm] 118/78 129/98 H Blood Pressure [Ri ght Upper Arm] Pulse Oximetry 99 97 Oxygen Delivery [facility] Room Air Room Air 01/26/24 07:00 01/26/24 07:00 01/26/24 07:00 Temperature 98.0 F Pulse Rate Pulse Rate [Pulse Oximeter] 107 H 107 H Respiratory Rate 20 Blood Pressure Blood Pressure [Ri ght Arm] 113/89 Blood Pressure [Ri ght Upper Arm] Pulse Oximetry 96 96 Oxygen Delivery [facility] Room Air Room Air 01/26/24 07:00 Temperature Pulse Rate 92 Pulse Rate [Pulse Oximeter] Respiratory Rate Blood Pressure Blood Pressure [Ri ght Arm] Blood Pressure [Ri ght Upper Arm] Pulse Oximetry Oxygen Delivery [facility] Hospitalist - H&P: Result Labs Labs: Short CBC 01/25/24 01/26/24 Range/Units 13:45 05:59 WBC 6.48 5.21 (4.50-11.00) K/uL Hgb 14.6 12.8 L (13.5-17.5) gm/dL Hct 44.8 38.8 (37.0-53.0) % Plt Count 156 144 (140-440) K/uL BMP 01/25/24 01/26/24 13:45 05:59 Sodium 138 138 Potassium 3.1 L 3.6 Chloride 102 104 Carbon Dioxide 27 29 BUN 37 H 29 Creatinine 1.4 1.2 Glucose 135 H 107 Calcium 9.7 9.6 Cardiac Enzymes 01/25/24 01/25/24 01/26/24 Range/Units 13:45 16:30 05:59 Troponin I 0.25 H* 0.24 H* 0.23 H* (0.01-0.04) ng/mL
--- NOTE | 2024-01-26 12:20 | P.DS_ITS ---
DS: Providers Provider Date Seen: 01/26/24 Date of admission: 01/25/24 18:27 Primary care physician: Adi Youngblood MD Admitting Clinician: Carmine Campoverde MD Consults: 01/25/24 18:04 Consult to Occupational Therapy [CONS] Routine Comment: Reason(s) for OT Consult:: Evaluate and Treat Any Restrictions?:: No Restrictions Consult to Physical Therapy [CONS] Routine Comment: Reason(s) for PT Consult:: Evaluate and Treat Any Restrictions?:: No Restrictions Attending Physician on discharge: HCICHO Eaton, PAMichelleC [facility] Date of Discharge: 01/26/24 DS: Diagnosis Discharge Diagnosis (1) Atrial fibrillation: Status: Acute Problem details: Uncertain onset date. Relates episodes of dyspnea, shortness of breath intermittently over the past 10 years. Worsening in past week. Rate in ED 104- 107. On day of discharge, rate is 78. Other than dyspnea on exertion, has denied chest pain, palpitations, fluttering sensation. Started on metoprolol b.i.d.. CHADsVASc score is 3. Started on Eliquis b.i.d. Unable to obtain a timely echocardiogram during hospitalization. Will follow up outpatient for TTE. Close outpatient follow-up with PCP. Outpatient Cardiology follow-up. (2) Exertional dyspnea: Status: Acute Problem details: Dyspnea could represent angina or be secondary to AFib with RVR. Ongoing workup and management with PCP. Outpatient echocardiogram. CTA chest negative for pulmonary embolism. Venous duplex negative for DVT. (3) Hypokalemia: Status: Acute Problem details: Likely related to hydrochlorothiazide. 3.1 on admission, 3.6 on discharge. Continued management with PCP. (4) Demand ischemia: Status: Acute Problem details: Troponin 0.24 on admission, 0.23 on day of discharge. EKG showing AFib with rate of 104. Symptomatic with dyspnea on exertion. ED provider had discussed with [facility], believed to be demand ischemia related to new onset atrial fibrillation. Started on Eliquis. Outpatient follow up with Cardiology. (5) Hypertension: Status: Acute Problem details: Continued on home medications. (6) Stage 3 chronic kidney disease: Status: Acute Problem details: Creatinine 1.4 on admission, 1.2 on discharge. Continued on home ronald nopril/HCTZ. (7) Hypothyroidism: Status: Acute Problem details: Continued on home levothyroxine DS: Summary Hospital Course Hospital Course: [age] year old male was admitted to the medical floor for management new onset atrial fibrillation. Course of care and details as noted above. Heart rate 104-107 on admission. Managed with metoprolol. Started on Eliquis. Outpatient follow-up with PCP and Cardiology. Outpatient echocardiogram. Remainder of chronic medical comorbidities were monitored and managed with home medications. Status at Discharge Functional status at discharge: independent ambulation Overall status at discharge: patient is back to baseline Time Spent with Patient Time attestation: Total time spent providing and/or coordinating discharge services: Time spent: Greater than 30 minutes Exam Narrative: Exam Narrative: PHYSICAL EXAM General: Pleasant, conversant, NAD Cardiovascular: RRR Pulmonary: No dyspnea Neurological: Alert, answering questions appropriately Skin: Warm, dry. Const: Vital Signs, click to edit/add: Vital Signs - 24 hr 01/25/24 13:29 01/25/24 13:45 01/25/24 13:46 Temperature 97.6 F Pulse Rate 86 85 Pulse Rate [Pulse Oximeter] 101 H Respiratory Rate 20 Blood Pressure 109/73 Blood Pressure [Ri ght Arm] Blood Pressure [Ri ght Upper Arm] 114/79 Pulse Oximetry 95 99 98 Oxygen Delivery Me od Room Air 01/25/24 14:00 01/25/24 14:01 01/25/24 14:31 Temperature Pulse Rate 89 91 Pulse Rate [Pulse Oximeter] Respiratory Rate Blood Pressure 111/84 111/72 Blood Pressure [Ri ght Arm] Blood Pressure [Ri ght Upper Arm] Pulse Oximetry 97 99 Oxygen Delivery Me thod 01/25/24 14:33 01/25/24 14:47 01/25/24 15:01 Temperature Pulse Rate 95 85 92 Pulse Rate [Pulse Oximeter] Respiratory Rate Blood Pressure 115/98 H Blood Pressure [Ri ght Arm] Blood Pressure [Ri ght Upper Arm] Pulse Oximetry 99 98 99 Oxygen Delivery Me thod 01/25/24 15:45 01/25/24 16:00 01/25/24 16:01 Temperature Pulse Rate 91 93 93 Pulse Rate [Pulse Oximeter] Respiratory Rate Blood Pressure 129/90 H Blood Pressure [Ri ght Arm] Blood Pressure [Ri ght Upper Arm] Pulse Oximetry 99 99 99 Oxygen Delivery Me thod 01/25/24 16:15 08/05/24 16:21 01/25/24 16:30 Temperature Pulse Rate 75 104 H 88 Pulse Rate [Pulse Oximeter] Respiratory Rate Blood Pressure 131/94 H Blood Pressure [Ri ght Arm] Blood Pressure [Ri ght Upper Arm] Pulse Oximetry 99 98 98 Oxygen Delivery Mo thod 01/25/24 16:31 01/25/24 16:45 01/25/24 17:00 Temperature Pulse Rate 81 87 84 Pulse Rate [Pulse Oximeter] Respiratory Rate Blood Pressure 131/89 Blood Pressure [Ri ght Arm] Blood Pressure [Ri ght Upper Arm] Pulse Oximetry 99 99 98 Oxygen Delivery Mo thod 01/25/24 17:02 01/25/24 17:15 01/25/24 17:30 Temperature Pulse Rate 80 90 90 Pulse Rate [Pulse Oximeter] Respiratory Rate Blood Pressure 133/82 Blood Pressure [Ri ght Arm] Blood Pressure [Ri ght Upper Arm] Pulse Oximetry 99 94 95 Oxygen Delivery Mo thod 01/25/24 17:31 01/25/24 18:02 01/25/24 19:00 Temperature 97.2 F L Pulse Rate Pulse Rate [Pulse Oximeter] 64 Respiratory Rate 20 Blood Pressure 149/112 H 157/94 H Blood Pressure [Ri ght Arm] 100/82 Blood Pressure [Ri ght Upper Arm] Pulse Oximetry 99 [facility] 01/25/24 19:06 01/25/24 23:00 01/25/24 23:00 Temperature 97.8 F Pulse Rate Pulse Rate [Pulse Oximeter] 96 83 Respiratory Rate 20 20 20 Blood Pressure Blood Pressure [Ri ght Arm] 146/87 H Blood Pressure [Ri ght Upper Arm] Pulse Oximetry 99 99 [facility] Room Air 01/25/24 23:00 01/25/24 23:00 01/26/24 03:00 Temperature 98.2 F 97.9 F Pulse Rate 100 Pulse Rate [Pulse Oximeter] 83 91 Respiratory Rate 20 20 Blood Pressure Blood Pressure [Ri ght Arm] 118/78 129/98 H Blood Pressure [Ri ght Upper Arm] Pulse Oximetry 99 97 [facility] Room Air 01/26/24 07:00 01/26/24 07:00 01/26/24 07:00 Temperature 98.0 F Pulse Rate Pulse Rate [Pulse Oximeter] 107 H 107 H Respiratory Rate 20 Blood Pressure Blood Pressure [Ri ght Arm] 113/89 Blood Pressure [Ri ght Upper Arm] Pulse Oximetry 96 96 Oxygen Delivery Me thod Room Air Room Air 01/26/24 07:00 Temperature Pulse Rate 92 Pulse Rate [Pulse Oximeter] Respiratory Rate Blood Pressure Blood Pressure [Ri ght Arm] Blood Pressure [Ri ght Upper Arm] Pulse Oximetry Oxygen Delivery Me thod DS: Data Data Completed and Pending Labs on day of discharge: Labs from last 24 hours 01/26/24 01/25/24 01/25/24 05:59 16:30 14:43 WBC 5.21 RBC 3.85 L Hgb 12.8 L Hct 38.8 MCV 101 H MCH 33 MCHC 33 RDW Coeff of Lisa 13.7 Plt Count 144 Neut % (Auto) 67.1 Lymph % (Auto) 15.2 L [place] % (Auto) 12.5 H Eos % (Auto) 4.0 Baso % (Auto) 1.0 Neut # (Auto) 3.50 Lymph # (Auto) 0.80 L [place] # (Auto) 0.70 Eos # (Auto) 0.21 Baso # (Auto) 0.05 Abs Immat Gran (auto) 0.01 Imm/Tot Granulo (auto) 0.2 D-Dimer Quant (PE/DVT) Sodium 138 Potassium 3.6 Chloride 104 Carbon Dioxide 29 Anion Gap 5 L BUN 29 Creatinine 1.2 Estimated Creat Clear 43.94 Estimated GFR 58 Glucose 107 Calcium 9.6 Magnesium 1.8 Troponin I 0.23 H* 0.24 H* NT-Pro-B Natriuret Pep TSH SARS-CoV-2 (PCR) Influenza Type A (PCR) Influenza Type B (PCR) RSV (PCR) Lab Acknowledgement Test Added POC Troponin I 01/25/24 01/25/24 01/25/24 14:42 14:33 14:15 WBC RBC Hgb Hct MCV MCH MCHC RDW Coeff of Lisa Plt Count Neut % (Auto) Lymph % (Auto) [place] % (Auto) Eos % (Auto) Baso % (Auto) Neut # (Auto) Lymph # (Auto) [place] # (Auto) Eos # (Auto) Baso # (Auto) Abs Immat Gran (auto) Imm/Tot Granulo (auto) D-Dimer Quant (PE/DVT) Sodium Potassium Chloride Carbon Dioxide Anion Gap BUN Creatinine Estimated Creat Clear Estimated GFR Glucose Calcium Magnesium Troponin I NT-Pro-B Natriuret Pep TSH SARS-CoV-2 (PCR) Negative SARS-CoV-2 Influenza Type A (PCR) Negative PCR FLU A Influenza Type B (PCR) Negative PCR FLU B RSV (PCR) Negative PCR RSV Lab Acknowledgement Test Added Test Added POC Troponin I 01/25/24 01/25/24 13:45 13:44 WBC 6.48 RBC 4.46 Hgb 14.6 Hct 44.8 MCV 100 MCH 33 MCHC 33 RDW Coeff of Lisa 13.6 Plt Count 156 Neut % (Auto) 72.6 H Lymph % (Auto) 10.8 L [place] % (Auto) 13.6 H Eos % (Auto) 1.9 Baso % (Auto) 0.9 Neut # (Auto) 4.70 Lymph # (Auto) 0.70 L [place] # (Auto) 0.90 Eos # (Auto) 0.12 Baso # (Auto) 0.06 Abs Immat Gran (auto) 0.01 Imm/Tot Granulo (auto) 0.2 D-Dimer Quant (PE/DVT) 1.76 H Sodium 138 Potassium 3.1 L Chloride 102 Carbon Dioxide 27 Anion Gap 9 BUN 37 H Creatinine 1.4 Estimated Creat Clear Estimated GFR 48 Glucose 135 H Calcium 9.7 Magnesium 1.5 Troponin I 0.25 H* NT-Pro-B Natriuret Pep 5810 TSH 2.920 SARS-CoV-2 (PCR) Influenza Type A (PCR) Influenza Type B (PCR) RSV (PCR) Lab Acknowledgement POC Troponin I 0.17 H Imaging Venous US: Attestation: I have reviewed the pertinent imaging results. Radiologist's impression: Ultrasound of the venous drainage of the left lower extremity shows no evidence of deep venous thrombosis. The examination was performed as mar scale, mar scale compression, color Doppler and spectral Doppler interrogation. Augmentation technique was also performed as per protocol. There is normal antegrade flow from the posterior tibial and popliteal veins superiorly through the common femoral vein. There is normal augmentation and compressibility of these veins. The right common femoral vein is widely patent. IMPRESSION: No evidence of deep venous thrombosis on ultrasound examination of the left lower extremity. CT scan - chest: Attestation: I have reviewed the pertinent imaging results. Radiologist's impression: CT chest pulmonary angiogram acquired with 95 cc of Isovue 370 IV contrast. COMPARISON: None. FINDINGS: Cardiovascular structures: CT pulmonary angiogram demonstrates adequate opacification of the pulmonary arteries. No evidence of pulmonary embolus. Aortic atherosclerosis. The non opacified thoracic aorta is normal in caliber. Coronary artery calcifications. Heart size is within normal limits. Mediastinum and maury: No pathologic lymphadenopathy. Lungs: No pneumothorax. Near diffuse mild bilateral bronchial wall thickening. Subtle mild bilateral ground-glass opacities. Linear scarring or atelectasis at the lung bases. Pleura and pericardium: No effusions. Chest wall and axilla: Unremarkable. Bones: Degenerative changes. No acute or suspicious osseous abnormality. Upper abdomen: Left hepatic lobe low densities most consistent with incidental cysts. Visualized upper abdomen is otherwise unremarkable. IMPRESSION: 1. No evidence of pulmonary embolus. 2. Mild bilateral bronchial wall thickening is likely infectious or inflammatory. 3. Subtle bilateral ground-glass opacities may represent subsegmental atelectasis or infection/inflammation. Discharge Plan Discharge Disposition: Home, Self-Care Date of Admission: 01/25/24 18:27 Attending Provider on Discharge: Samra Orantes Primary Care Provider: Adi Youngblood Condition: Stable Anticipated Discharge Date/Time: 01/26/24 10:21 Discharge Medications: New metoprolol tartrate 25 mg Tablet 25 mg PO BID Qty: 60 0RF Eliquis 5 mg Tablet 5 mg PO BID Qty: 60 0RF Continued levothyroxine 25 mcg tablet 25 mcg PO DAILY omeprazole 20 mg capsule,delayed release(DR/EC) 20 mg PO DAILY lisinopril-hydrochlorothiazide 20-25 mg tablet 1 tab PO DAILY rosuvastatin 20 mg tablet 20 mg PO QPM lorazepam 0.5 mg tablet 0.5 mg PO BID PRN fluticasone propionate 50 mcg/actuation spray,suspension 2 spray INTRANASAL DAILY Held aspirin [Adult Low Dose Aspirin] 81 mg tablet,delayed release (DR/EC) 81 mg PO DAILY Hold Instructions: Resume on 02/12/24. Hold until follow up with PCP/Cardiology Discharge Orders: Discharge Order (Routine); Ordered 01/26/24 Ordered By: Samra Orantes Patient Education: Metoprolol (By mouth), Apixaban (By mouth) (Eliquis), A-fib (Atrial Fibrillation) (GEN) Additional Instructions: You have been started on Eliquis and Metoprolol for your atrial fibrillation. Continue to take these twice daily. You will need an Echocardiogram which will be scheduled by your PCP. Activity Level: Activity as Tolerated Discharge Diet: Heart Healthy (2 gm sodium, low fat) Follow Up Appointments: Harris Kidd [Other] - 01/28/24 1:50 pm (Please go to [address] for this appointment. If Dr. Youngblood is not available, please schedule with available physician. PCP to schedule outpatient NANCY as soon as able.) Adi Youngblood MD [Primary Care Provider] - (Post hospital follow up 3-[address]. [address] Youngblood is not available, please schedule with Dr. Pringle if available. PCP to schedule outpatient NANCY as soon as able.) RONALD PRINGLE DO [Referring] - Forms: [employer] Info Instructions
== END 2024-01-26 11:53 | disposition home or self-care (01) | DRG 309 ==
LOC: ED 15:57 → MEDSURG 18:26
PROVIDERS: Admitting Provider Family Medicine; Emergency Provider Student in an Organized Health Care Education/Training Program; PCP Family Medicine; Visit Provider Family Medicine
DX: I48.91 Unspecified atrial fibrillation (principal); I24.89 Other forms of acute ischemic heart disease; E87.6 Hypokalemia; I12.9 Hypertensive chronic kidney disease with stage 1 through stage 4 chronic kidney disease, or unspecified chronic kidney disease; N18.30 Chronic kidney disease, stage 3 unspecified; K21.9 Gastro-esophageal reflux disease without esophagitis; E78.6 Lipoprotein deficiency; Z79.01 Long term (current) use of anticoagulants; E03.9 Hypothyroidism, unspecified; E78.5 Hyperlipidemia, unspecified; Z85.46 Personal history of malignant neoplasm of prostate; G47.00 Insomnia, unspecified; Z86.73 Personal history of transient ischemic attack (TIA), and cerebral infarction without residual deficits
CPT/HCPCS: 36415; 71275; 80048; 83735; 83880; 84443; 84484; 85025; 85379; 87631; 93005; 93971; 97116; 97161; 97165; 97535; 99284; 99285; A9270; J3475; J7120; Q9967

== ENCOUNTER 2024-02-01 07:56 | Outpatient (CLI) | payer MEDICARE, OTHER, SELFPAY | END 2024-02-01 07:57 | disposition home or self-care (01) | LOC: RAD 07:58 | PROVIDERS: PCP Family Medicine; Visit Provider Family Medicine | DX: I48.91 Unspecified atrial fibrillation (principal); I34.0 Nonrheumatic mitral (valve) insufficiency | CPT/HCPCS: 93306 ==

== ENCOUNTER 2024-03-29 14:32 | Emergency (ER) | payer MEDICARE, OTHER, SELFPAY ==
[2024-03-29] VITALS (33 sets, daily range): BP systolic 96–150; BP diastolic 82–138; PULSE 63–123; RESP 7–31; TEMP 36.8; O2SAT 82–100; BMI 21.6
--- NOTE | 2024-03-29 15:01 | ED.GENADULT ---
HPI - General Adult General Date Seen: 03/29/24 <Sen Hewitt MD - Last Filed: 03/29/24 18:32> Chief complaint: Arrhythmia/Palpitations <Sen Hewitt MD - Last Filed: 03/29/24 18:32> Stated complaint: AFIB <Sen Hewitt MD - Last Filed: 03/29/24 18:32> Time Seen by Provider: 03/29/24 14:53 <Sen Hewitt MD - Last Filed: 03/29/24 18:32> History of Present Illness HPI narrative: 88 yo M with a recent diagnosis of AFib. He is on lisinopril and hydrochlorothiazide for high blood pressure. He takes levothyroxine for hypothyroidism A fib was 1st detected by EKG on January 23, admitted here [place] and discharged on January 24. He was discharged home with metoprolol for rate control, Eliquis for stroke prophylaxis. During that hospitalization troponin was elevated at 0.24, but did not rise. Thought to be due to demand ischemia from his AFib with RVR. He also has a history of chronic kidney disease. Creatinine was 1.2 at the time of discharge in January. . He has had follow-up labs in the [facility] clinic. On March 14 TSH was slightly elevated at 7.35 but free T4 was normal at 1.3. He has had follow-up outpatient echocardiogram-below. He also had a stress test which was abnormal, prompting coronary angiogram which ultimately showed no significant coronary artery disease. He has been taking his meds, including the Eliquis, since he was discharged in January. He had an outpatient clinic follow-up today at the [facility] clinic with [facility], Dr. Powell. Dany Li is a 88 y.o. male with excellent RVR, CHF and recent coronary angiogram not showing significant coronary disease. He is here to follow-up with me, I am now his third financial institution treasurer within an 8-week period. Today he and his present to the outpatient clinic here in [place], he is quite short of breath and is confirms that he is overall feeling worse than before. They are eager to proceed with the next step, he has been on oral anticoagulation for at least 2 weeks after his coronary angiogram. ? Transthoracic echocardiogram 01/2024 Final Impressions: 1. Normal left ventricular size, normal wall thickness, mildly reduced global systolic function, calculated EF of 47 %. 2. The aortic valve is trileaflet and sclerotic, no stenosis and no regurgitation. 3. The mitral valve is normal, mild mitral regurgitation. 4. The aortic sinus is normal for age/sex/bsa with a maximal diameter of 3.7 cm. 5. Compared to prior study from 2019, atrial fibrillation is new, LVEF is lower (prior was 55-60%). ? Coronary angiogram SUMMARY FINDINGS: 1. No significant coronary disease. 2. No angiographic correlate to positive stress test. 3. This study is consistent with mild LV dysfunction secondary to atrial fibrillation with rapid ventricular response. ? Impression and Plan: ? 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 Due to his ongoing and worsening symptoms I suggest that they drive to the next local emergency department and see if a direct current cardioversion (DCCV) can be entertained. He has been on oral anticoagulation for 2 weeks with a novel anticoagulant without interruption and hence I told them that the stroke risk is low although of course it cannot be completely excluded. Nevertheless, in order to avoid further worsening of his heart failure I think it is definitely worthwhile attempting confucianism of sinus rhythm. This may or may not need supportive medication in the form of amiodarone for example. ? Should the local ER have additional questions they can contact our [facility] physician at any time. He has been noticing that he has had dyspnea on exertion ever since January but has been getting progressively worse. He really can not walk more than 10-20 feet without getting very short of breath and having to sit down. He is not having any chest pain. He does not really feel the palpitations so he does not know if he has been in or out of AFib or not. His wonders if he may have actually had AFib since last winter, but they are just not sure. It was not detected in tele was in the ER in January. He does have some bilateral lower extremity peripheral edema that is been there for a few months. The patient does not really recognize that his feet are swollen but his notices that they are puffy. He has not had any fever. No cough. <Sen Hewitt MD - Last Filed: 03/29/24 18:32> Related Data Home medications: Home Medications ?Medication ?Instructions ?Recorded ?Confirmed aspirin 81 mg tablet,delayed 81 mg PO DAILY 01/25/24 01/25/24 release (Adult Low Dose Aspirin) fluticasone propionate 50 2 spray intranasal DAILY 01/25/24 01/25/24 mcg/actuation nasal spray,suspension levothyroxine 25 mcg tablet 25 mcg PO DAILY 01/25/24 01/25/24 lisinopril 20 1 tab PO DAILY 01/25/24 01/25/24 mg-hydrochlorothiazide 25 mg tablet lorazepam 0.5 mg tablet 0.5 mg PO BID PRN 01/25/24 01/25/24 omeprazole 20 mg capsule,delayed 20 mg PO DAILY 01/25/24 01/25/24 release rosuvastatin 20 mg tablet 20 mg PO QPM 01/25/24 01/25/24 Previous Rx's ?Medication ?Instructions ?Recorded apixaban 5 mg tablet (Eliquis) 5 mg PO BID #60 tabs 01/26/24 metoprolol tartrate 25 mg tablet 25 mg PO BID #60 tabs 01/26/24 amiodarone 400 mg tablet 400 mg PO BID #30 tabs 03/29/24 <Sen Hewitt MD - Last Filed: 03/29/24 18:32> Allergies/adverse reactions: Allergies Allergy/AdvReac Type Severity Reaction Status Date / Time No Known Drug Allergies Allergy Verified 01/25/24 13:32 <Sen Hewitt MD - Last Filed: 03/29/24 18:32> [facility] Medical History: Medical History (Updated 03/29/24 @ 17:28 by Sen Hewitt MD) Hypokalemia ?E87.6 - Hypokalemia (ICD-10) CVA (cerebral vascular accident) ?I63.9 - Cerebral infarction, unspecified (ICD-10) Hyperlipidemia ?E78.5 - Hyperlipidemia, unspecified (ICD-10) Insomnia ?G47.00 - Insomnia, unspecified (ICD-10) Stage 3 chronic kidney disease ?N18.30 - Chronic kidney disease, stage 3 unspecified (ICD-10) Hypothyroidism ?E03.9 - Hypothyroidism, unspecified (ICD-10) Gastroesophageal reflux ?K21.9 - Gastro-esophageal reflux disease without esophagitis (ICD-10) Prostate cancer ?C61 - Malignant neoplasm of prostate (ICD-10) Hypertension ?I10 - Essential (primary) hypertension (ICD-10) <Sen Hewitt MD - Last Filed: 03/29/24 18:32> Surgical History: Surgical History History of total right hip arthroplasty ?Z96.641 - Presence of right artificial hip joint (ICD-10) H/O partial thyroidectomy ?E89.0 - Postprocedural hypothyroidism (ICD-10) History of orchiectomy ?Z90.79 - Acquired absence of other genital organ(s) (ICD-10) History of prostatectomy ?Z90.79 - Acquired absence of other genital organ(s) (ICD-10) History of appendectomy ?Z90.49 - Acquired absence of other specified parts of digestive tract (ICD-10) <Sen Hewitt MD - Last Filed: 03/29/24 18:32> Family History: Family History (Updated 01/25/24 @ 18:21 by Carmine Campoverde MD) Other Heart disease <Sen Hewitt MD - Last Filed: 03/29/24 18:32> Social History: Social History (Updated 01/25/24 @ 18:23 by Carmine Campoverde MD) Narrative: He lives with his at [facility] on [address]. His is healthcare power of disability attorney. His code status is DNR. He is continue to drive. He walks without assistive device/cane/walker. He does not smoke. He drinks 1 martini per day What is your current living situation?: I presently have a place to live Problems where you live: no known problems Problems where you live details: NA In the past 12 months, utilities in danger of being shut off: no In past 12 months, lack of transportation kept you from medical appts, meetings, work, or getting things needed for daily living: no In the past 12 mos, have been you worried that your food would run out before you had money to buy more?: never true In the past 12 mos, the food you bought just didn't last and you didn't have money to buy more?: never true Highest level of school completed/degree received: 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 degree (, 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, 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, 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) Smoking Status: Never smoker Second hand tobacco smoke exposure: No How often do you have a drink containing alcohol: 4 or more times a week Alcohol type: hard liquor Alcohol type details: one martini/night How many standard drinks containing alcohol do you have on a typical day: 1 or 2 AUDIT-C Alcohol total score: 4 Non-prescribed substance use: denies use Caffeine: Yes (coffee) How often does anyone, including family, friends and others, physically hurt you: never How often does anyone, including family, friends and others, insult or talk down to you: never How often does anyone, including family, friends and others, threaten you with harm: never How often does anyone, including family, friends and others, scream or curse at you: never service: Yes <Sen Hewitt MD - Last Filed: 03/29/24 18:32> Exam Narrative: Exam Narrative: Constitutional: Appears well-developed and well-nourished. Alert. Conversant but does look short of breath and is breathing a little bit more rapidly and deeply than normal. Non toxic. HENT: Head: Atraumatic. Nose: Nose normal. Mouth/Throat: Oral mucosa is clear and moist. no trismus. Pharynx normal. Tonsils symmetric. No tonsillar enlargement, erythema, or exudate. Eyes: Conjunctivae normal. EOM normal. Pupils equal, round, and reactive to light. No scleral icterus. Neck: Normal range of motion. Neck supple. No tracheal deviation present. No JVD Cardiovascular: Irregularly irregular rhythm. Heart ranged ranging 90s to 110. No gallop. No friction rub. No murmur heard. Symmetric radial artery pulses Pulmonary/Chest: Effort normal. No stridor. No respiratory distress. No wheezes. No definite rales. No rhonchi . No tenderness. Abdominal: Soft. Bowel sounds normal. No distension. No mass. No tenderness. No rebound. No guarding. Musculoskeletal: RUE: Normal range of motion. No tenderness. No deformity LUE: Normal range of motion. No tenderness. No deformity RLE: Normal range of motion. 2+ edema. No tenderness. No deformity LLE: Normal range of motion. 2+ edema. No tenderness. No deformity Neurological: Alert and oriented to person, place, and time. Normal strength. CN II-VII intact. No sensory deficit. GCS eye subscore is 4. GCS verbal subscore is 5. GCS motor subscore is 6. Normal coordination Skin: Skin is warm and dry. No rash noted. No pallor. Normal capillary refill. Psychiatric: Normal mood. Normal affect. <Sen Hewitt MD - Last Filed: 03/29/24 18:32> Const: Vital Signs, click to edit/add: Vital Signs - 24 hr 03/29/24 14:40 03/29/24 14:50 03/29/24 15:00 Temperature 98.2 F Pulse Rate 93 95 Pulse Rate [Right Pulse Oximeter] 123 H Respiratory Rate 27 H Blood Pressure Blood Pressure [Le ft Upper Arm] 142/112 H Pulse Oximetry 99 98 98 Oxygen Delivery Me thod Room Air 03/29/24 15:15 03/29/24 15:30 03/29/24 15:45 Temperature Pulse Rate 118 H 104 H 93 Pulse Rate [Right Pulse Oximeter] Respiratory Rate Blood Pressure Blood Pressure [Le ft Upper Arm] Pulse Oximetry 96 99 99 Oxygen Delivery Me thod 03/29/24 15:59 03/29/24 16:00 03/29/24 16:02 Temperature Pulse Rate 100 113 H Pulse Rate [Right Pulse Oximeter] 105 H Respiratory Rate 10 L 25 H 25 H Blood Pressure 150/138 H Blood Pressure [Le ft Upper Arm] 150/138 H Pulse Oximetry 100 100 89 Oxygen Delivery Me thod 03/29/24 16:06 03/29/24 16:07 03/29/24 16:12 Temperature Pulse Rate 101 H 113 H 90 Pulse Rate [Right Pulse Oximeter] Respiratory Rate 27 H 22 31 H Blood Pressure 138/96 H 140/104 H 129/87 Blood Pressure [Le ft Upper Arm] Pulse Oximetry 99 99 97 Oxygen Delivery Me thod 03/29/24 16:15 03/29/24 16:17 03/29/24 16:22 Temperature Pulse Rate 107 H 109 H 109 H Pulse Rate [Right Pulse Oximeter] Respiratory Rate 26 H 29 H Blood Pressure 112/93 H 122/86 Blood Pressure [Le ft Upper Arm] Pulse Oximetry 100 99 100 Oxygen Delivery Me thod 03/29/24 16:27 03/29/24 16:30 03/29/24 16:32 Temperature Pulse Rate 83 73 107 H Pulse Rate [Right Pulse Oximeter] Respiratory Rate 31 H 25 H 24 Blood Pressure 127/82 96/82 Blood Pressure [Le ft Upper Arm] Pulse Oximetry [address]od 03/29/24 16:36 03/29/24 16:42 03/29/24 16:45 Temperature Pulse Rate 96 Pulse Rate [Right Pulse Oximeter] Respiratory Rate 23 13 Blood Pressure 114/99 H 135/84 Blood Pressure [Le ft Upper Arm] Pulse Oximetry [address] thod 03/29/24 16:45 03/29/24 16:45 03/29/24 16:47 Temperature Pulse Rate Pulse Rate [Right Pulse Oximeter] 63 Respiratory Rate 25 H 7 L Blood Pressure 119/86 Blood Pressure [Le ft Upper Arm] 119/86 Pulse Oximetry Oxygen Delivery Ct thod 03/29/24 16:51 03/29/24 16:56 03/29/24 17:00 Temperature Pulse Rate Pulse Rate [Right Pulse Oximeter] Respiratory Rate 27 H 15 27 H Blood Pressure 125/87 124/103 H Blood Pressure [Le ft Upper Arm] [facility]ximetry [facility] 17:02 03/29/24 17:17 03/29/24 17:19 Temperature Pulse Rate 72 Pulse Rate [Right Pulse Oximeter] Respiratory Rate 29 H Blood Pressure 116/82 134/90 H Blood Pressure [Le ft Upper Arm] Pulse Oximetry 82 L [facility] 17:30 03/29/24 17:32 03/29/24 17:45 Temperature Pulse Rate 105 H 105 H 97 Pulse Rate [Right Pulse Oximeter] Respiratory Rate Blood Pressure 135/105 H Blood Pressure [Le ft Upper Arm] Pulse Oximetry 96 100 97 [facility] 03/[facility] 18:00 03/29/24 18:02 Temperature Pulse Rate 82 97 Pulse Rate [Right Pulse Oximeter] Respiratory Rate Blood Pressure 120/89 Blood Pressure [Le ft Upper Arm] Pulse Oximetry [address]od <Sen Hewitt MD - Last Filed: 03/29/24 18:32> Vital Signs, click to edit/add: Vital Signs - 24 hr 03/29/24 14:40 03/29/24 14:50 03/29/24 15:00 Temperature 98.2 F Pulse Rate 93 95 Pulse Rate [Right Pulse Oximeter] 123 H Respiratory Rate 27 H Blood Pressure Blood Pressure [Le ft Upper Arm] 142/112 H Pulse Oximetry 99 98 98 Oxygen Delivery Me thod Room Air 03/29/24 15:15 03/29/24 15:30 03/29/24 15:45 Temperature Pulse Rate 118 H 104 H 93 Pulse Rate [Right Pulse Oximeter] Respiratory Rate Blood Pressure Blood Pressure [Le ft Upper Arm] Pulse Oximetry 96 99 99 Oxygen Delivery Me thod 03/29/24 15:59 03/29/24 16:00 03/29/24 16:02 Temperature Pulse Rate 100 113 H Pulse Rate [Right Pulse Oximeter] 105 H Respiratory Rate 10 L 25 H 25 H Blood Pressure 150/138 H Blood Pressure [Le ft Upper Arm] 150/138 H Pulse Oximetry 100 100 89 Oxygen Delivery Me thod 03/29/24 16:06 03/29/24 16:07 03/29/24 16:12 Temperature Pulse Rate 101 H 113 H 90 Pulse Rate [Right Pulse Oximeter] Respiratory Rate 27 H 22 31 H Blood Pressure 138/96 H 140/104 H 129/87 Blood Pressure [Le ft Upper Arm] Pulse Oximetry 99 99 97 Oxygen Delivery Me thod 03/29/24 16:15 03/29/24 16:17 03/29/24 16:22 Temperature Pulse Rate 107 H 109 H 109 H Pulse Rate [Right Pulse Oximeter] Respiratory Rate 26 H 29 H Blood Pressure 112/93 H 122/86 Blood Pressure [Le ft Upper Arm] Pulse Oximetry 100 99 100 Oxygen Delivery Me thod 03/29/24 16:27 03/29/24 16:30 03/29/24 16:32 Temperature Pulse Rate 83 73 107 H Pulse Rate [Right Pulse Oximeter] Respiratory Rate 31 H 25 H 24 Blood Pressure 127/82 96/82 Blood Pressure [Le ft Upper Arm] Pulse Oximetry 100 100 100 Oxygen Delivery Me thod 03/29/24 16:36 03/29/24 16:42 03/29/24 16:45 Temperature Pulse Rate 96 Pulse Rate [Right Pulse Oximeter] Respiratory Rate 23 13 Blood Pressure 114/99 H 135/84 Blood Pressure [Le ft Upper Arm] Pulse Oximetry 100 98 Oxygen Delivery Me thod 03/29/24 16:45 03/29/24 16:45 03/29/24 16:47 Temperature Pulse Rate Pulse Rate [Right Pulse Oximeter] 63 Respiratory Rate 25 H 7 L Blood Pressure 119/86 Blood Pressure [Le ft Upper Arm] 119/86 Pulse Oximetry Oxygen Delivery Me thod 03/29/24 16:51 03/29/24 16:56 03/29/24 17:00 Temperature Pulse Rate Pulse Rate [Right Pulse Oximeter] Respiratory Rate 27 H 15 27 H Blood Pressure 125/87 124/103 H Blood Pressure [Le ft Upper Arm] Pulse Oximetry Oxygen Delivery Me thod 03/29/24 17:02 03/29/24 17:17 03/29/24 17:19 Temperature Pulse Rate 72 Pulse Rate [Right Pulse Oximeter] Respiratory Rate 29 H Blood Pressure 116/82 134/90 H Blood Pressure [Le ft Upper Arm] Pulse Oximetry 82 L Oxygen Delivery Me thod 03/29/24 17:30 03/29/24 17:32 03/29/24 17:45 Temperature Pulse Rate 105 H 105 H 97 Pulse Rate [Right Pulse Oximeter] Respiratory Rate Blood Pressure 135/105 H Blood Pressure [Le ft Upper Arm] Pulse Oximetry 96 100 97 Oxygen Delivery Me thod 03/29/24 18:00 03/29/24 18:02 Temperature Pulse Rate 82 97 Pulse Rate [Right Pulse Oximeter] Respiratory Rate Blood Pressure 120/89 Blood Pressure [Le ft Upper Arm] Pulse Oximetry 98 95 Oxygen Delivery Me thod <Tamia De Leon MD - Last Filed: 04/03/24 20:26> Course Course ED Course: After discussion of risks and benefits we did perform procedural sedation for electrical cardioversion. Procedure: Electrical cardioversion Indication :atrial fibrillation with significant shortness of breath Patient has been anticoagulated for several weeks. Was sent here by his financial institution treasurer for us to attempt electrical cardioversion Risks and benefits of the procedure were discussed with the patient and his in detail. After appropriate procedural sedation, good anesthesia was achieved. Pads were placed anterior and posterior. We delivered a synchronized 200 joule shock. We appeared to have a brief says couple seconds of sinus rhythm but then degenerated back to AFib. Two additional shocks, 200 joules each were administered. We did reposition the pads to see we can be more successful. However the patient remained in AFib after the procedure. No other complications noted. <Sen Hewitt MD - Last Filed: 03/29/24 18:32> Reevaluation(s) Time of Reevaluation #1: 16:17 <Tamia De Leon MD - Last Filed: 04/03/24 20:26> Reevaluation #1: I was asked to provide procedural sedation for this patient. Patient denies having reaction anesthesia in the past. Patient in atrial fibrillation, airway patent. Appropriate time-out was done. Propofol 70 mL given. Patient was properly sedated for the procedure. Oxygen saturation remained above 90%. Woke up without complication. <Tamia De Leon MD - Last Filed: 04/03/24 20:26> Vital Signs Vital signs: Initial Vital Signs Temperature 98.2 F 03/29/24 14:40 Temperature Source Temporal Artery Scan 03/29/24 14:40 Pulse Rate 123 H 03/29/24 14:40 Respiratory Rate 27 H 03/29/24 14:40 Blood Pressure 142/112 H 03/29/24 14:40 Blood Pressure Mean 122 H 03/29/24 14:40 Blood Pressure Position Supine 03/29/24 14:40 Pulse Oximetry 99 03/29/24 14:40 Oxygen Delivery Method Room Air 03/29/24 14:40 Vital Signs Temperature 98.2 F 03/29/24 14:40 Pulse Rate 123 H 03/29/24 14:40 Respiratory Rate 27 H 03/29/24 14:40 Blood Pressure 142/112 H 03/29/24 14:40 Pulse Oximetry 99 03/29/24 14:40 Oxygen Delivery Method Room Air 03/29/24 14:40 Temperature 98.2 F 03/29/24 14:40 Pulse Rate 97 03/29/24 18:02 Respiratory Rate 29 H 03/29/24 17:02 Blood Pressure 120/89 03/29/24 18:02 Pulse Oximetry 95 03/29/24 18:02 Oxygen Delivery Method Room Air 03/29/24 14:40 <Sen Hewitt MD - Last Filed: 03/29/24 18:32> Initial Vital Signs Temperature 98.2 F 03/29/24 14:40 Temperature Source Temporal Artery Scan 03/29/24 14:40 Pulse Rate 123 H 03/29/24 14:40 Respiratory Rate 27 H 03/29/24 14:40 Blood Pressure 142/112 H 03/29/24 14:40 Blood Pressure Mean 122 H 03/29/24 14:40 Blood Pressure Position Supine 03/29/24 14:40 Pulse Oximetry 99 03/29/24 14:40 Oxygen Delivery Method Room Air 03/29/24 14:40 Vital Signs Temperature 98.2 F 03/29/24 14:40 Pulse Rate 123 H 03/29/24 14:40 Respiratory Rate 27 H 03/29/24 14:40 Blood Pressure 142/112 H 03/29/24 14:40 Pulse Oximetry 99 03/29/24 14:40 Oxygen Delivery Method Room Air 03/29/24 14:40 Temperature 98.2 F 03/29/24 14:40 Pulse Rate 97 03/29/24 18:02 Respiratory Rate 29 H 03/29/24 17:02 Blood Pressure 120/89 03/29/24 18:02 Pulse Oximetry 95 03/29/24 18:02 Oxygen Delivery Method Room Air 03/29/24 14:40 <Tamia De Leon MD - Last Filed: 04/03/24 20:26> Medications Administered Medications: Discontinued Medications Generic Name Dose Route Start Last Admin Trade Name Freq PRN Reason Stop Dose Admin Amiodarone HCl 400 mg 03/29/24 17:27 03/29/24 17:50 Amiodarone 200 Mg Tablet PO 03/29/24 17:28 400 mg ONCE ONE Administration Propofol 200 mg 03/29/24 15:36 03/29/24 16:01 Propofol 10 Mg/Ml Inj IVP 03/29/24 15:37 70 mg ONCE ONE Administration <Sen Hewitt MD - Last Filed: 03/29/24 18:32> Discontinued Medications Generic Name Dose Route Start Last Admin Trade Name Freq PRN Reason Stop Dose Admin Amiodarone HCl 400 mg 03/29/24 17:27 03/29/24 17:50 Amiodarone 200 Mg Tablet PO 03/29/24 17:28 400 mg ONCE ONE Administration Propofol 200 mg 03/29/24 15:36 03/29/24 16:01 Propofol 10 Mg/Ml Inj IVP 03/29/24 15:37 70 mg ONCE ONE Administration <Tamia De Leon MD - Last Filed: 04/03/24 20:26> Medical Decision Making MDM Narrative Medical decision making narrative: This is a very pleasant 88-year-old gentleman with a history of AFib 1st diagnosed about 2 months ago. He seems to be in chronic AFib since then. He has already managed with Eliquis for stroke prophylaxis and metoprolol 25 mg b.i.d. for rate control. He has already had extensive workup through Cardiology. He was actually in his financial institution treasurer clinic today and they sent him here to the ER for us to attempt electrical cardioversion. Based on his duration of anticoagulation cardiology was comfortable with the stroke risk. Lab workup here in the ER shows normal potassium, normal sodium. Mildly elevated BUN at 39 and creatinine 1.2 which is baseline. And terminal proBNP is 7270 which is up slightly from January. Chest x-ray does not show any signs of pulmonary edema. Oxygen saturations are normal on room air. We did perform procedural sedation and electrical cardioversion here, but the cardioversion was unsuccessful in restoring and maintaining sinus rhythm. He continues to be in AFib. After cardioversion here in the ER he was having spells where he would briefly converted to sinus rhythm and then back to AFib. Would also have occasional PVCs. He symptomatically said he was feeling much better after the cardioversion attempt, even though he remained in AFib. He was able to pass ambulation trial in the hallway and maintain sats in the 90s on room air. Discussed with the financial institution treasurer on-call for [facility], Dr. Benitez. He would recommend that we initiate the patient on amiodarone. Initial dose would be 400 mg twice daily for 2 weeks. After that decreased to [address] Benitez will arrange follow-up for the patient through the Cardiology Clinic and they anticipate they will want a see him in about 10 days for re-evaluation and another attempt at cardioversion. Often times cardioversion can be more successful after the patient has been on amiodarone. if the patient's symptoms worsen they are instructed to return to the ER immediately. If subsequent cardioversion is unsuccessful or if he does not tolerate amiodarone, next step would be to transfer to [facility] to consider an AV leila ablation and pacemaker implantation <Sen Hewitt MD - Last Filed: 03/29/24 18:32> Lab Data Labs: Lab Results 03/29/24 Range/Units 15:04 WBC 5.65 (4.50-11.00) K/uL RBC 4.03 L (4.30-5.90) m/uL Hgb 12.9 L (13.5-17.5) gm/dL Hct 41.9 (37.0-53.0) % MCV 104 H (80-100) fL MCH 32 (26-34) pg MCHC 31 L (32-36) gm/dL RDW Coeff of Lisa 14.7 (11.5-15.5) % Plt Count 130 L (140-440) K/uL Neut % (Auto) 76.5 H (42.0-72.0) % Lymph % (Auto) 12.0 L (20-44) % Thayer % (Auto) 8.7 (0.0-11.0) % Eos % (Auto) 0.9 (0.0-7.0) % Baso % (Auto) 0.7 (0.0-3.0) % Neut # (Auto) 4.30 (1.7-7.0) K/uL Lymph # (Auto) 0.70 L (0.90-2.90) K/uL Thayer # (Auto) 0.50 (0.00-0.90) K/UL Eos # (Auto) 0.05 (0.00-0.50) K/uL Baso # (Auto) 0.04 (0.00-0.30) K/uL Abs Immat Gran (auto) 0.07 (0.00-0.30) K/uL Imm/Tot Granulo (auto) 1.2 % Sodium 144 (135-149) mmol/L Potassium 3.6 (3.6-5.1) mmol/L Chloride 107 (96-114) mmol/L Carbon Dioxide 29 (20-32) mmol/L Anion Gap 8 (7-15) mEq/L BUN 39 H (7-30) mg/dL Creatinine 1.2 (0.5-1.5) mg/dL Estimated Creat Clear 42.31 Estimated GFR 58 ml/min Glucose 133 H (60-115) mg/dL Calcium 10.0 (8.4-10.6) mg/dL NT-Pro-B Natriuret Pep 7270 pg/mL <Sen Hewitt MD - Last Filed: 03/29/24 18:32> Lab Results 03/29/24 Range/Units 15:04 WBC 5.65 (4.50-11.00) K/uL RBC 4.03 L (4.30-5.90) m/uL Hgb 12.9 L (13.5-17.5) gm/dL Hct 41.9 (37.0-53.0) % MCV 104 H (80-100) fL MCH 32 (26-34) pg MCHC 31 L (32-36) gm/dL RDW Coeff of Lisa 14.7 (11.5-15.5) % Plt Count 130 L (140-440) K/uL Neut % (Auto) 76.5 H (42.0-72.0) % Lymph % (Auto) 12.0 L (20-44) % [place] % (Auto) 8.7 (0.0-11.0) % Eos % (Auto) 0.9 (0.0-7.0) % Baso % (Auto) 0.7 (0.0-3.0) % Neut # (Auto) 4.30 (1.7-7.0) K/uL Lymph # (Auto) 0.70 L (0.90-2.90) K/uL [place] # (Auto) 0.50 (0.00-0.90) K/UL Eos # (Auto) 0.05 (0.00-0.50) K/uL Baso # (Auto) 0.04 (0.00-0.30) K/uL Abs Immat Gran (auto) 0.07 (0.00-0.30) K/uL Imm/Tot Granulo (auto) 1.2 % Sodium 144 (135-149) mmol/L Potassium 3.6 (3.6-5.1) mmol/L Chloride 107 (96-114) mmol/L Carbon Dioxide 29 (20-32) mmol/L Anion Gap 8 (7-15) mEq/L BUN 39 H (7-30) mg/dL Creatinine 1.2 (0.5-1.5) mg/dL Estimated Creat Clear 42.31 Estimated GFR 58 ml/min Glucose 133 H (60-115) mg/dL Calcium 10.0 (8.4-10.6) mg/dL NT-Pro-B Natriuret Pep 7270 pg/mL <Tamia De Leon MD - Last Filed: 04/03/24 20:26> Imaging Data Chest x-ray: Attestation: I have reviewed the pertinent imaging results. <Sen Hewitt MD - Last Filed: 03/29/24 18:32> Radiologist's impression: IMPRESSION: No acute thoracic findings. <Sen Hewitt MD - Last Filed: 03/29/24 18:32> ECG Data Attestation: I personally reviewed and interpreted this ECG as follows: <Sen Hewitt MD - Last Filed: 03/29/24 18:32> Interpretation: Atrial fibrillation with rapid ventricular response Rate: 111 LA: Na QRS axis: Rightward axis deviation. Incomplete right bundle branch block pattern. ST segment/T wave: No ST segment elevation or depression. Nonspecific T-wave changes. QTc: 470 EKG 2.-1631 Normal sinus rhythm Rate: 100 LA: 172 QRS axis: Normal axis. ST segment/T wave: No ST segment elevation or depression. QTc: 490 EKG 3. 1632 Atrial fibrillation with competing junctional pacemaker Rate 64 QRS axis-normal axis. ST segment and T-wave without any ST segment elevation or depression. Nonspecific T-wave flattening. QTC: 402 <Sen Hewitt MD - Last Filed: 03/29/24 18:32> Discharge Plan Discharge Clinical Impression: Atrial fibrillation, Exertional dyspnea <Sen Hewitt MD - Last Filed: 03/29/24 18:32> Patient Disposition: Home, Self-Care <Sen Hewitt MD - Last Filed: 03/29/24 18:32> Condition: Stable <Sen Hewitt MD - Last Filed: 03/29/24 18:32> Instructions: A-fib (Atrial Fibrillation) (ED), Asthma (DC) <Sen Hewitt MD - Last Filed: 03/29/24 18:32> Additional Instructions: As we discussed, please come back to the ER right away if you are feeling worse, especially if you have any chest pain, fainting spells, weakness, or worsening trouble breathing. Continue on your current medications for your AFib. We will add amiodarone to these as well. Take amiodarone 2 times a day for 2 weeks. After that your financial institution treasurer will tell you how to decrease your dose (likely, you will be able to reduce your dose down to 1 pill per day). You will receive a phone call from the cardiology clinic tomorrow to arrange a follow-up appointment the in 10 days. If you have any concerns, come back to the ER. <Sen Hewitt MD - Last Filed: 03/29/24 18:32> Prescriptions: New amiodarone 400 mg tablet 400 mg PO BID Qty: 30 0RF No Action levothyroxine 25 mcg tablet 25 mcg PO DAILY omeprazole 20 mg capsule,delayed release(DR/EC) 20 mg PO DAILY lisinopril-hydrochlorothiazide 20-25 mg tablet 1 tab PO DAILY rosuvastatin 20 mg tablet 20 mg PO QPM lorazepam 0.5 mg tablet 0.5 mg PO BID PRN fluticasone propionate 50 mcg/actuation spray,suspension 2 spray INTRANASAL DAILY aspirin [Adult Low Dose Aspirin] 81 mg tablet,delayed release (DR/EC) 81 mg PO DAILY Hold Instructions: Resume on 02/12/24. Hold until follow up with PCP/Cardiology metoprolol tartrate 25 mg Tablet 25 mg PO BID Qty: 60 0RF Eliquis 5 mg Tablet 5 mg PO BID Qty: 60 0RF <Sen Hewitt MD - Last Filed: 03/29/24 18:32> Follow Up/Referrals: Adi Youngblood MD [Primary Care Provider] - <Sen Hewitt MD - Last Filed: 03/29/24 18:32> Stand Alone Forms: [employer] Info Instructions <Sen Hewitt MD - Last Filed: 03/29/24 18:32>
--- NOTE | 2024-03-29 15:37 | CRLHL7_ITS ---
For Patients: As a result of the Century Cures Act, medical imaging exams and procedure reports are released immediately into your electronic medical record. You may view this report before your referring provider. If you have questions, please contact your health care provider. INDICATION: Dyspnea and atrial fibrillation COMPARISON: January 25, 2024 CT chest TECHNIQUE: Single frontal radiographic view(s) of the chest. FINDINGS: Defibrillator pads and a CPR monitoring device have been placed over the chest. No substantial pleural effusion. No definite focal pulmonary consolidation. Normal heart size. No acute osseous findings. Surgical clips project over the right neck. IMPRESSION: No acute thoracic findings. Dictated by Lam Sauceda MD @ 03/29/2024 4:41:14 PM (Electronically Signed)
[2024-03-29] MEDS: PROPOFOL 10 MG/ML INJ 200 MG IVP (16:01)
[2024-03-29 16:17] LABS: Chloride* 107 mmol/L (96-114); Potassium* 3.6 mmol/L (3.6-5.1); Sodium* 144 mmol/L (135-149)
[2024-03-29 16:20] LABS: Anion Gap 8 mEq/L (7-15); Basophils Absolute Auto 0.04 K/uL (0.00-0.30); Basophils Percent Auto 0.7 % (0.0-3.0); Blood Urea Nitrogen* 39 mg/dL (7-30); Carbon Dioxide* 29 mmol/L (20-32); Creatinine* 1.2 mg/dL (0.5-1.5); Eosinophils Absolute Auto 0.05 K/uL (0.00-0.50); Eosinophils Percent Auto 0.9 % (0.0-7.0); Est. Creatinine Clearance* 42.31; Estimated Glomerular Filt Rate 58 ml/min; Glucose* 133 mg/dL (60-115); Hematocrit 41.9 % (37.0-53.0); Hemoglobin* 12.9 gm/dL (13.5-17.5); Immature Granulocytes Abs Auto 0.07 K/uL (0.00-0.30); Immature Granulocytes Pct Auto 1.2 %; Mean Corpuscular HGB Conc 31 gm/dL (32-36); Mean Corpuscular Hemoglobin 32 pg (26-34); Mean Corpuscular Volume 104 fL (80-100); Monocytes Percent Auto 8.7 % (0.0-11.0); Neutrophils Percent Auto 76.5 % (42.0-72.0); Platelet Count* 130 K/uL (140-440); RDW Coefficient of Variation % 14.7 % (11.5-15.5); Red Blood Count 4.03 m/uL (4.30-5.90); White Blood Count* 5.65 K/uL (4.50-11.00)
--- NOTE | 2024-03-29 16:22 | RESP.RT ---
RT Time 45 minutes cardioversion/ airway protection.
[2024-03-29 16:26] LABS: Slide Review Reflex No
[2024-03-29 16:30] LABS: NT Pro B Type NatriureticPept* 7270 pg/mL
--- NOTE | 2024-03-29 16:43 | ED.NURSE ---
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
[2024-03-29] MEDS: AMIODARONE 200 MG TABLET 400 MG PO (17:50)
== END 2024-03-29 18:55 | disposition home or self-care (01) ==
PROVIDERS: Emergency Provider Emergency Medicine; PCP Family Medicine; Visit Provider Emergency Medicine
DX: I48.91 Unspecified atrial fibrillation (principal)
CPT/HCPCS: 92960; 36415; 71045; 80048; 83880; 85025; 93005; 94761; 99285; A9270; J2704

== ENCOUNTER 2024-04-06 14:17 | Emergency (ER) | payer MEDICARE, OTHER, SELFPAY ==
[2024-04-06 14:24] VITALS: BP 160/93; PULSE 58; RESP 24; TEMP 36.4; O2SAT 98; BMI 23.4
--- NOTE | 2024-04-06 14:37 | ED_ITS ---
HPI - General Adult General Chief complaint: Shortness of Breath/Dyspnea Stated complaint: CHF-feeling severe symptoms Time Seen by Provider: 04/06/24 14:32 History of Present Illness HPI narrative: C/o Congestive heart failure been working with cardiology at [facility]. got a new diagnosis of AFib 2 wks. ago . Since has been getting out of breath with movement. most concerned about blood pressure today, highest was 188/110 on home monitor, was 160/93 in triage pt. denies chest pain, GILL or vision changes. pt does complain of SOB in triage. 89-year-old man presenting to the emergency department with concern of increasing shortness of breath but in particular are alarmed with degree of swelling in his lower legs. Not complaining of any pain here necessarily. Diagnosed in early January with atrial fibrillation. Returned a little over week ago with AFib and RVR and a number of attempts were made at cardioversion unsuccessfully. Was initiated on amiodarone. Appears to have been anticipating another attempted cardioversion in the meantime but it sounds as if this was deferred; not yet been done in any case. Heart failure likely related to atrial fibrillation. Is not having any chest pain but more short of breath particularly with any exertion. They are concerned also about elevated blood pressures today. As discussing workup, daughter who accompanies expresses concern about TSH. Upon review of records it looks like this was normal 2 months ago. Related Data Home Medications ?Medication ?Instructions ?Recorded ?Confirmed aspirin 81 mg tablet,delayed 81 mg PO DAILY 01/25/24 01/25/24 release (Adult Low Dose Aspirin) fluticasone propionate 50 2 spray intranasal DAILY 01/25/24 01/25/24 mcg/actuation nasal spray,suspension levothyroxine 25 mcg tablet 50 mcg PO DAILY 01/25/24 04/06/24 lorazepam 0.5 mg tablet 0.5 mg PO BID PRN 01/25/24 04/06/24 omeprazole 20 mg capsule,delayed 20 mg PO DAILY 01/25/24 04/06/24 release rosuvastatin 20 mg tablet 20 mg PO QPM 01/25/24 04/06/24 lisinopril 20 mg tablet 20 mg PO DAILY 04/06/24 04/06/24 Previous Rx's ?Medication ?Instructions ?Recorded apixaban 5 mg tablet (Eliquis) 5 mg PO BID #60 tabs 01/26/24 metoprolol tartrate 25 mg tablet 25 mg PO BID #60 tabs 01/26/24 amiodarone 400 mg tablet 400 mg PO BID #30 tabs 03/29/24 furosemide 40 mg tablet 40 mg PO BID #30 tabs 04/06/24 Allergies Allergy/AdvReac Type Severity Reaction Status Date / Time No Known Drug Allergies Allergy Verified 04/06/24 14:24 Review of Systems Status of ROS: Reports: 6 or more systems reviewed and unremarkable except as noted in History and below [facility] Medical History Hypokalemia ?E87.6 - Hypokalemia (ICD-10) CVA (cerebral vascular accident) ?I63.9 - Cerebral infarction, unspecified (ICD-10) Hyperlipidemia ?E78.5 - Hyperlipidemia, unspecified (ICD-10) Insomnia ?G47.00 - Insomnia, unspecified (ICD-10) Stage 3 chronic kidney disease ?N18.30 - Chronic kidney disease, stage 3 unspecified (ICD-10) Hypothyroidism ?E03.9 - Hypothyroidism, unspecified (ICD-10) Gastroesophageal reflux ?K21.9 - Gastro-esophageal reflux disease without esophagitis (ICD-10) Prostate cancer ?C61 - Malignant neoplasm of prostate (ICD-10) Hypertension ?I10 - Essential (primary) hypertension (ICD-10) Surgical History History of total right hip arthroplasty ?Z96.641 - Presence of right artificial hip joint (ICD-10) H/O partial thyroidectomy ?E89.0 - Postprocedural hypothyroidism (ICD-10) History of orchiectomy ?Z90.79 - Acquired absence of other genital organ(s) (ICD-10) History of prostatectomy ?Z90.79 - Acquired absence of other genital organ(s) (ICD-10) History of appendectomy ?Z90.49 - Acquired absence of other specified parts of digestive tract (ICD- 10) Family History (Updated 01/25/24 @ 18:21 by Carmine Campoverde MD) Other Heart disease Social History Narrative: He lives with his at [facility] on the [place]. 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 His code status is DNR. He is continue to drive. He walks without assistive device/cane/walker. He does not smoke. He drinks 1 martini per day What is your current living situation?: I presently have a place to live Problems where you live: no known problems Problems where you live details: NA In the past 12 months, utilities in danger of being shut off: no In past 12 months, lack of transportation kept you from medical appts, meetings, work, or getting things needed for daily living: no In the past 12 mos, have been you worried that your food would run out before you had money to buy more?: never true In the past 12 mos, the food you bought just didn't last and you didn't have money to buy more?: never true Highest level of school completed/degree received: 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 degree (, 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, 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, 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) Smoking Status: Never smoker Second hand tobacco smoke exposure: No How often do you have a drink containing alcohol: 4 or more times a week Alcohol type: hard liquor Alcohol type details: one martini/night How many standard drinks containing alcohol do you have on a typical day: 1 or 2 AUDIT-C Alcohol total score: 4 Non-prescribed substance use: denies use Caffeine: Yes (coffee) How often does anyone, including family, friends and others, physically hurt you : never How often does anyone, including family, friends and others, insult or talk down to you: never How often does anyone, including family, friends and others, threaten you with harm: never How often does anyone, including family, friends and others, scream or curse at you: never service: Yes Exam Narrative: Exam Narrative: Very pleasant. Mildly labored breathing and mildly tachypneic. Congested sound in voice. Moderate pitting edema right greater than left lower legs but similar. There is a small line of dried blood consistent with a small scratches sustained on the right leg. Lungs with bibasilar crepitus. Heart in slower but regular rhythm. Abdomen is soft nontender. Const: Vital Signs, click to edit/add: Vital Signs - 24 hr 04/06/24 14:24 04/06/24 16:42 Temperature 97.5 F L Pulse Rate [Pulse Oximeter] 58 L 57 L Respiratory Rate 24 20 Blood Pressure [Ri ght Upper Arm] 160/93 H 166/81 H Pulse Oximetry 98 97 Oxygen Delivery Me thod Room Air Room Air Documenting provider has reviewed patient's vital signs: yes Course Vital Signs Vital signs: Initial Vital Signs Temperature 97.5 F L 04/06/24 14:24 Temperature Source Temporal Artery Scan 04/06/24 14:24 Pulse Rate 58 L 04/06/24 14:24 Respiratory Rate 24 04/06/24 14:24 Blood Pressure 160/93 H 04/06/24 14:24 Blood Pressure Mean 115 H 04/06/24 14:24 Blood Pressure Position Sitting 04/06/24 14:24 Pulse Oximetry 98 04/06/24 14:24 Oxygen Delivery Method Room Air 04/06/24 14:24 Vital Signs Temperature 97.5 F L 04/06/24 14:24 Pulse Rate 58 L 04/06/24 14:24 Respiratory Rate 24 04/06/24 14:24 Blood Pressure 160/93 H 04/06/24 14:24 Pulse Oximetry 98 04/06/24 14:24 Oxygen Delivery Method Room Air 04/06/24 14:24 Temperature 97.5 F L 04/06/24 14:24 Pulse Rate 57 L 04/06/24 16:42 Respiratory Rate 20 04/06/24 16:42 Blood Pressure 166/81 H 04/06/24 16:42 Pulse Oximetry 97 04/06/24 16:42 Oxygen Delivery Method Room Air 04/06/24 16:42 Medications Administered Medications: Discontinued Medications Generic Name Dose Route Start Last Admin Trade Name Freq PRN Reason Stop Dose Admin Furosemide 40 mg 04/06/24 16:16 04/06/24 17:17 Furosemide 10 Mg/Ml Inj IVP 04/06/24 16:17 40 mg ONCE ONE Administration Medical Decision Making MDM Narrative Medical decision making narrative: I would presume CHF exacerbation. Would draw associated labs. Check renal function. Monitor - has been oxygenating well at rest on room air. Is anticoagulated currently with apixaban. I think some compression would be in order here of the lower legs. Does have compression stockings but had not been wearing them. Placing Joshua wrap here in the emergency department. He is not on a significant diuretic at this point. There do appear to be P-waves in this EKG today. I suspect more of a slow AFib though. Was similar on prior EKG In labs potassium looks good at 4. Creatinine is 1.3. ProBNP at 5470 which is about 2000 less than last time was seen though this was with RVR as well. Chest x-ray reviewed by me now with small right-sided pleural effusion, cardiomegaly and cephalization. Radiology over-read below. Technique: Chest 1 view Comparison: Chest x-ray 03/29/2024 Findings/Impression: Cardiovascular and mediastinum: Upper normal heart size. Lungs and pleural space: Mild pulmonary cephalization with small right pleural effusion and right basilar linear opacities, likely atelectasis. Discussed all findings with Cardiology and in agreement with initiating diuresis. I had already ordered for 40 mg of IV Lasix. Considering renal function they would like to dose Lasix at 40 mg twice daily. See patient discharge plan for further discussion Medical Records Medical records reviewed: Yes I reviewed the patient's medical records Lab Data Labs: Lab Results 04/06/24 Range/Units 15:20 WBC 5.62 (4.50-11.00) K/uL RBC 4.12 L (4.30-5.90) m/uL Hgb 13.3 L (13.5-17.5) gm/dL Hct 43.2 (37.0-53.0) % MCV 105 H (80-100) fL MCH 32 (26-34) pg MCHC 31 L (32-36) gm/dL RDW Coeff of Lisa 15.3 (11.5-15.5) % Plt Count 135 L (140-440) K/uL Neut % (Auto) 78.3 H (42.0-72.0) % Lymph % (Auto) 11.2 L (20-44) % [place] % (Auto) 8.9 (0.0-11.0) % Eos % (Auto) 0.9 (0.0-7.0) % Baso % (Auto) 0.5 (0.0-3.0) % Neut # (Auto) 4.40 (1.7-7.0) K/uL Lymph # (Auto) 0.60 L (0.90-2.90) K/uL [place] # (Auto) 0.50 (0.00-0.90) K/UL Eos # (Auto) 0.05 (0.00-0.50) K/uL Baso # (Auto) 0.03 (0.00-0.30) K/uL Abs Immat Gran (auto) 0.01 (0.00-0.30) K/uL Imm/Tot Granulo (auto) 0.2 % Sodium 142 (135-149) mmol/L Potassium 4.0 (3.6-5.1) mmol/L Chloride 104 (96-114) mmol/L Carbon Dioxide 30 (20-32) mmol/L Anion Gap 8 (7-15) mEq/L BUN 25 (7-30) mg/dL Creatinine 1.3 (0.5-1.5) mg/dL Estimated Creat Clear 41.03 Estimated GFR 53 ml/min Glucose 117 H (60-115) mg/dL Calcium 9.8 (8.4-10.6) mg/dL Magnesium 1.7 (1.5-2.6) mg/dL Total Bilirubin 1.0 (0.1-1.5) mg/dL Direct Bilirubin 0.2 (0.0-0.5) mg/dL AST 33 (12-35) U/L ALT 22 (4-50) U/L Alkaline Phosphatase 75 (40-150) U/L NT-Pro-B Natriuret Pep 5470 pg/mL Total Protein 6.6 (6.0-8.3) g/dL Albumin 4.1 (3.3-5.0) g/dL Lab Acknowledgement Test Added ECG Data Attestation: I personally reviewed and interpreted this ECG as follows: (Sinus bradycardia noted but I think this might be more of a slow AFib. Rate of 58. Similar to last EKG on file) Discharge Plan Discharge Clinical Impression: CHF exacerbation Atrial fibrillation Qualifiers: Atrial fibrillation type: unspecified Qualified Code(s): I48.91 - Unspecified atrial fibrillation Patient Disposition: Home w/ Parent or Adult Condition: Stable Additional Instructions: Was a pleasure to talk with you. Do try to wear compression over your ankles and lower legs of some form when up and about and maybe even at rest depending on comfort. Do try to, when at rest, get your legs up near the level of your heart. Please call tomorrow to schedule follow-up in clinic somewhere between 5-7 days from now. Take the Lasix (furosemide) as 40 mg twice daily over the next 5 days. Be seen sooner for worsening shortness of breath, chest pain, persistent heart rate over 100. Prescriptions: New furosemide 40 mg tablet 40 mg PO BID Qty: 30 0RF No Action levothyroxine 25 mcg tablet 50 mcg PO DAILY omeprazole 20 mg capsule,delayed release(DR/EC) 20 mg PO DAILY rosuvastatin 20 mg tablet 20 mg PO QPM lorazepam 0.5 mg tablet 0.5 mg PO BID PRN fluticasone propionate 50 mcg/actuation spray,suspension 2 spray INTRANASAL DAILY aspirin [Adult Low Dose Aspirin] 81 mg tablet,delayed release (DR/EC) 81 mg PO DAILY Hold Instructions: Resume on 02/12/24. Hold until follow up with P CP/Cardiology metoprolol tartrate 25 mg Tablet 25 mg PO BID Qty: 60 0RF Eliquis 5 mg Tablet 5 mg PO BID Qty: 60 0RF amiodarone 400 mg tablet 400 mg PO BID Qty: 30 0RF lisinopril 20 mg tablet 20 mg PO DAILY Follow Up/Referrals: Adi Youngblood MD [Staff Physician] - Stand Alone Forms: [facility] Info Instructions
--- NOTE | 2024-04-06 14:58 | CRLHL7_ITS ---
For Patients: As a result of the Century Cures Act, medical imaging exams and procedure reports are released immediately into your electronic medical record. You may view this report before your referring provider. If you have questions, please contact your health care provider. Indication: Heart failure and dyspnea Technique: Chest 1 view Comparison: Chest x-ray 03/29/2024 Findings/Impression: Cardiovascular and mediastinum: Upper normal heart size. Lungs and pleural space: Mild pulmonary cephalization with small right pleural effusion and right basilar linear opacities, likely atelectasis. Bones and soft tissues: No acute findings. Dictated by Jose Ag MD @ 04/06/2024 3:27:31 PM (Electronically Signed)
[2024-04-06 15:27] LABS: Basophils Absolute Auto 0.03 K/uL (0.00-0.30); Basophils Percent Auto 0.5 % (0.0-3.0); Eosinophils Absolute Auto 0.05 K/uL (0.00-0.50); Eosinophils Percent Auto 0.9 % (0.0-7.0); Hematocrit 43.2 % (37.0-53.0); Hemoglobin* 13.3 gm/dL (13.5-17.5); Immature Granulocytes Abs Auto 0.01 K/uL (0.00-0.30); Immature Granulocytes Pct Auto 0.2 %; Lymphocytes Percent Auto 11.2 % (20-44); Mean Corpuscular HGB Conc 31 gm/dL (32-36); Mean Corpuscular Hemoglobin 32 pg (26-34); Mean Corpuscular Volume 105 fL (80-100); Monocytes Percent Auto 8.9 % (0.0-11.0); Neutrophils Percent Auto 78.3 % (42.0-72.0); Platelet Count* 135 K/uL (140-440); RDW Coefficient of Variation % 15.3 % (11.5-15.5); Red Blood Count 4.12 m/uL (4.30-5.90); White Blood Count* 5.62 K/uL (4.50-11.00)
[2024-04-06 15:29] LABS: Slide Review Reflex No
[2024-04-06 15:41] LABS: Chloride* 104 mmol/L (96-114)
[2024-04-06 15:42] LABS: Albumin* 4.1 g/dL (3.3-5.0); Sodium* 142 mmol/L (135-149)
[2024-04-06 15:45] LABS: Alanine Aminotransferase* 22 U/L (4-50); Alkaline Phosphatase* 75 U/L (40-150); Anion Gap 8 mEq/L (7-15); Aspartate Amino Transferase* 33 U/L (12-35); Bilirubin Direct* 0.2 mg/dL (0.0-0.5); Blood Urea Nitrogen* 25 mg/dL (7-30); Calcium* 9.8 mg/dL (8.4-10.6); Carbon Dioxide* 30 mmol/L (20-32); Creatinine* 1.3 mg/dL (0.5-1.5); Est. Creatinine Clearance* 41.03; Estimated Glomerular Filt Rate 53 ml/min; Glucose* 117 mg/dL (60-115); Total Protein* 6.6 g/dL (6.0-8.3)
[2024-04-06 15:46] LABS: Magnesium* 1.7 mg/dL (1.5-2.6)
[2024-04-06 15:55] LABS: NT Pro B Type NatriureticPept* 5470 pg/mL
[2024-04-06 16:42] VITALS: BP 166/81; PULSE 57; RESP 20; O2SAT 97
[2024-04-06] MEDS: FUROSEMIDE 10 MG/ML inj 40 MG IVP (17:17)
== END 2024-04-06 17:46 | disposition home or self-care (01) ==
PROVIDERS: Emergency Provider Family Medicine; PCP Family Medicine
DX: J44.1 Chronic obstructive pulmonary disease with (acute) exacerbation (principal)
CPT/HCPCS: 36415; 71045; 80048; 80076; 83735; 83880; 85025; 93005; 96374; 99284; 99285; J1940